=== PATIENT | female | born 1955 | race Asian ===

== ENCOUNTER 2016-07-27 17:20 | Inpatient (IN) | payer OTHER ==
[~2016-07-27] VITALS: Ht 152.4 cm; Wt 76.0 kg
[2016-07-27] VITALS (7 sets, daily range): BP systolic 90–114; BP diastolic 40–63
[2016-07-27] MEDS ORDERED: FERR300L GT (17:39)
[2016-07-27] MEDS ORDERED: ZINC220C8 GT (17:39)
[2016-07-27] MEDS ORDERED: METO25TA6 GT (17:39)
[2016-07-27] MEDS ORDERED: SODI1TAB3 GT (17:39)
[2016-07-27] MEDS ORDERED: DEXT15DR6 EACHEYE (17:39)
[2016-07-27] MEDS ORDERED: LABE100T15 GT (17:39)
[2016-07-27] MEDS ORDERED: MULT-24 GT (17:39)
[2016-07-27] MEDS ORDERED: LORA1TAB GT (17:39)
[2016-07-27] MEDS ORDERED: INSU100V7 SQ (17:39)
[2016-07-27] MEDS ORDERED: LACT1CAP61 GT (17:39)
[2016-07-27] MEDS ORDERED: ASCO500S2 GT (17:39)
[2016-07-27] MEDS ORDERED: FAMO20TA8 GT (17:39)
[2016-07-27] MEDS ORDERED: FOLI1TAB16 GT (17:39)
[2016-07-27] MEDS ORDERED: FURO40TA5 GT (17:39)
[2016-07-27] MEDS ORDERED: INSU100V27 SQ (17:39)
[2016-07-27] MEDS ORDERED: IPRA3AMP IH ×2 (17:39)
[2016-07-27] MEDS ORDERED: MORP10SO2 GT (17:39)
--- NOTE | 2016-07-27 17:46 | NUR ---
PATIENT BIB RA FROM [facility], ON ISOLATION FOR VRE, AND PATIENT IS HERE FOR ABNORMAL LABS FOR LOW H&H, RESPIRATORY AT BEDSIDE, WILL BE SEEN BY MD AT BEDSIDE, PATIENT IS NON VERBAL,
--- NOTE | 2016-07-27 17:51 | NUR ---
PT REC'D ON PORTEX TRACH SZ 7. PT PLACED ON [facility] VENT SETTINGS CHARTED. DANCE ARTIST CUFF PRESSURE NOTED. VENT PLUGGED INTO RED OUTLET. ALARMS ARE SET AND AUDIBLE. AMBU BAG BEDSIDE, WILL CONTINUE TO MONITOR Addendum: 07/27/16 at 1752 by TAWNYA MYERS RT Amended: Links added.
[2016-07-27] MEDS ORDERED: PANTOPRAZOLE 40 MG VIAL ONE (18:11)
[2016-07-27] MEDS ORDERED: PANTOPRAZOLE 40 MG VIAL IV ONE (18:30)
[2016-07-27 18:34] LABS: BASOPHILS % (AUTO) 0.2 % (0.0-2.0); EOSINOPHILS # (AUTO) 0.4 /CMM (0.0-0.7); EOSINOPHILS % (AUTO) 4.4 % (0.0-6.0); LYMPHOCYTES # (AUTO) 1.1 /CMM (0.8-4.8); LYMPHOCYTES % (AUTO) 11.6 % (20.0-44.0); MEAN CORPUSCULAR HEMOGLOBIN 30 PG (26.0-33.0); MEAN CORPUSCULAR HGB CONC 36 g/dl (31.0-36.0); MEAN CORPUSCULAR VOLUME 83 fL (82-100); MONOCYTES # (AUTO) 0.2 /CMM (0.1-1.30); MONOCYTES % (AUTO) 2.4 % (2.0-12.0); NEUTROPHILS # (AUTO) 8.1 /CMM (1.8-8.9); NEUTROPHILS % (AUTO) 81.4 % (43.0-81.0); RDW COEFFICIENT OF VARIATION 15.7 (11.5-15.0); RED BLOOD CELL COUNT(AUTO) 2.35 MIL/uL (4.0-5.2); WHITE BLOOD COUNT (AUTO) 9.8 K/uL (4.3-11.0)
[2016-07-27 18:38] LABS: HEMATOCRIT 19 % (33-45)
[2016-07-27 18:39] LABS: PLATELET COUNT (AUTO) 40 /CMM (150-450)
[2016-07-27] MEDS ORDERED: IV SET PRIMARY 1 EA INFUS.SET MC ONE (18:44)
[2016-07-27] MEDS ORDERED: IV NS 0.9% 1,000 ML ONE ×2 (18:44→22:20)
[2016-07-27 18:45] LABS: BILIRUBIN,DIRECT 0.7 mg/dL (0.0-0.2); BILIRUBIN,TOTAL 0.9 mg/dL (0.2-1.0); CALCIUM, SERUM 8.4 mg/dL (8.5-10.1); CREATININE 1.2 mg/dL (0.6-1.3); POTASSIUM 4.1 mmol/L (3.5-5.1); TOTAL PROTEIN, SERUM 5.8 g/dL (6.4-8.2)
[2016-07-27 18:46] LABS: ALBUMIN 1.4 g/dL (3.4-5.0)
[2016-07-27 18:49] LABS: INR 1.02 (0.87-1.13); PROTHROMBIN TIME 10.6 SECS (9.5-12.7)
[2016-07-27] MEDS ORDERED: IV NS 0.9% 500 ML BAG IV ONE ×2 (19:00)
[2016-07-27 19:11] LABS: NEUTROPHILS % (MANUAL) 75 (42-76)
[2016-07-27 19:12] LABS: EOSINOPHILS % (MANUAL) 4 % (0-4); LYMPHOCYTES % (MANUAL) 19 % (16-48); MONOCYTES % (MANUAL) 2 % (0-11.0)
--- NOTE | 2016-07-27 19:43 | NUR ---
CALLED NURSING SUP. FOR FABRIZIO BED
--- NOTE | 2016-07-27 20:30 | NUR ---
REPORT GIVEN TO IAN HAYNES FOR MANDEEP.
--- NOTE | 2016-07-27 20:38 | NUR ---
[facility] PAGED, DR.VU MURRAY SENIOR JAVA WEB APPLICATION DEVELOPER
[2016-07-27] MEDS ORDERED: IV NS 0.9% 1,000 ML IV PRN (21:06)
--- NOTE | 2016-07-27 21:17 | NUR ---
Transported to [facility] room 109 via [facility] protocol, no inciden noted. endorsed to Radha HAYNES for santiago.
[2016-07-27] MEDS ORDERED: MAG HYDROX/AL HYDROX/SIMETH 30 ML UDC GT PRN (21:30)
[2016-07-27] MEDS ORDERED: LORAZEPAM 1 MG TABLET GT PRN (21:30)
[2016-07-27] MEDS ORDERED: MORPHINE SULFATE GT PRN (21:30)
[2016-07-27] MEDS ORDERED: MAGNESIUM HYDROXIDE 30 ML UDC GT PRN (21:30)
[2016-07-27] MEDS ORDERED: ZOLPIDEM TARTRATE 5 MG TABLET GT PRN (21:30)
[2016-07-27] MEDS ORDERED: ONDANSETRON HCL/PF 4 MG/2 ML VIAL IVP PRN (21:30)
[2016-07-27] MEDS ORDERED: HYDROCODONE/APAP 5/325MG 1 EACH TABLET GT PRN (21:30)
[2016-07-27] MEDS ORDERED: MORPHINE SULFATE INJ 2 MG/ML DISP.SYRIN IV PRN (21:30)
[2016-07-27] MEDS ORDERED: Medication Not On Formulary EA (Ipratropium/Albuterol Sulfate (Duoneb 2.5-0.5 Mg/3 Ml So IH PRN (21:30)
[2016-07-27] MEDS ORDERED: ALBUMIN 25% 100 ML IV ONE (22:18)
[2016-07-27] MEDS ORDERED: IV SET PRIMARY PUMP SET 1 EA INFUS.SET MC ONE (22:20)
[2016-07-27] MEDS ORDERED: BLOOD IV SET 1 EA INFUS.SET MC ONE (22:20)
[2016-07-27] MEDS ORDERED: IV NS 0.9% 250 ML IV ONE (22:21)
[2016-07-27] MEDS ORDERED: SECONDARY IV SET 1 EA INFUS.SET MC ONE (22:21)
--- NOTE | 2016-07-27 22:30 | NUR ---
RN ADMITTING NOTES RECEIVED PATIENT FROM ER AT 2115, VIA GURNEY, TRANSPORTED VIA ACLS PROTOCOL. PATIENT OBSERVED TO BE OBTUNDED, NONVERBAL, OPENS EYES SPONTANEOUSLY, UNABLE TO FOLLOW COMMANDS, RESPONDS AND WITHDRAWS WITH TACTILE STIMULI. PATIENT CONNECTED TO TELE, SB AT 56. WITH TRACH - PORTEX 7, ON [facility] VENT SETTINGS OF AC 12, TV 400, FIO2 40%, PEEP 5. AIRWAY SUCTIONED WITH MINIMAL, THICK, WHITE SECRETIONS. DELBERT PICC LINE, FLUSHED AND PATENT, (+) BLOOD RETURN. GT FLUSHED, PATENT, CLAMPED. F/C IN PLACE, INTACT, DRAINING VIA GRAVITY WITH DOMINIQUE COLORED URINE. TEMP NOTED TO BE 91.7, SHELLEY HUGGER IN PLACE. ADMISSION DONE, BODY CHECK DONE, PICTURES TAKEN AND FILED IN CHART. ADMITTED FOR ACUTE ANEMIA, HYPONATREMIA UNDER THE CARE OF DR. MURRAY. DR. MURRAY AT BEDSIDE, UPDATED OF PATIENT'S CONDITION, ORDERS NOTED AND CARRIED OUT. PATIENT'S DTR, DORITA, UPDATED WITH PATIENT'S CURRENT CONDITION AND PLAN OF CARE. PATIENTS' SAFETY AND COMFORT ENSURED. BED IN LOW AND LOCKED POSITION. HOB ELEVATED. WILL CONTINUE TO MONITOR.
--- NOTE | 2016-07-27 22:41 | NUR ---
RN NOTES 2229 DR. MURRAY AT BEDSIDE. AWARE OF 2 UNITS PRBC ORDERED BY ER MD DR. RICHARDS. PER MD TO TRANSFUSE 1 UNIT FOR NOW AND RECHECK H/H AT 0100, TO CALL FOR RESULTS. ALSO INFORMED HIM OF 91.7 TEMP PER RECTUM. WARM BLANKET PROVIDED FOR NOW. WILL CONTINUE TO MONITOR
[2016-07-28] VITALS (17 sets, daily range): BP systolic 88–112; BP diastolic 46–66
[2016-07-28] MEDS ORDERED: IV SET PRIMARY PUMP SET 1 EA INFUS.SET MC ONE ×2 (00:30→10:11)
--- NOTE | 2016-07-28 00:40 | NUR ---
RN NOTES 1unit OF PRBC TRANSFUSED ORDERED, NO REACTION OBSERVED. TOLERATED WELL. VS: 93.4, 94/56, 57, 100%.
[2016-07-28] MEDS: ALBUMIN 25% 25 GM in PREMIX 1 EA IV SCH ×4 (00:42→15:49)
[2016-07-28] MEDS ORDERED: Medication Not On Formulary EA (Ipratropium/Albuterol Sulfate (Duoneb 2.5-0.5 Mg/3 Ml So IH SCH (01:00)
[2016-07-28 01:49] LABS: RETICULOCYTE COUNT 1.7 % (0.6-2.5)
[2016-07-28 01:53] LABS: HEMOGLOBIN 8.1 g/dL (11.5-14.8)
--- NOTE | 2016-07-28 02:15 | NUR ---
RN NOTES INFORMED DR. MURRAY OF THE PATIENT'S REPEAT H/H POST 1unit OF PRBC TRANSFUSED. VALUE OF 8.1/. DR. MURRAY WITH NO ORDER FOR FURTHER PRBC TRANSFUSION. CONT TO MONITOR. VS: 96.6 AXILLARY, REMAINS ON SHELLEY HUGGER; 103/51, 62 SR. ALSO CLARIFIED WITH DR. MURRAY THE PATIENT'S ISOLATION OF ESBL/VRE URINE ENDORSED FROM ER AND THE SNF PATIENT CAME FROM, PATIENT ON F/C. ORDER TO COLLECT URINALYSIS AND C/S, NOTED AND CARRIED OUT. PATIENT'S BS CHECKED AND NOTED TO BE 137. GT FLUSHED, PATENT, CLAMPED AND PATIENT ON NPO. NO SS ORDERED AT THIS TIME, WILL REEVAL WHEN FEEDING RESUMED.
[2016-07-28 02:33] LABS: THYROID STIMULATING HORMONE 20.636 uIU/mL (0.358-3.74)
[2016-07-28 05:05] LABS: APPEARANCE,URINE CLOUDY (CLEAR); BILIRUBIN,URINE 1+ (NEGATIVE); BLOOD, URINE 3+ Ery/uL (NEGATIVE); COLOR,URINE YELLOW (YELLOW); KETONES,URINE NEGATIVE (NEGATIVE); LEUKOCYTE ESTERASE ,URINE 2+ (NEGATIVE); NITRITE, URINE NEGATIVE (NEGATIVE); PH,URINE 5.5 (5.0-8.0); PROTEIN,URINE 2+ mg/dl (NEGATIVE); UGLUCOSE NEGATIVE (NEGATIVE); UROBILINOGEN,URINE 0.2 EU/dL (0.2)
[2016-07-28 05:17] LABS: RBC,URINE 81-100 /HPF (0-2)
[2016-07-28 05:18] LABS: BACTERIA,URINE 2+ /HPF (None Seen); SQUAMOUS EPITHELIAL CELL,UR Few /HPF (None Seen); YEAST,URINE Many /HPF (None Seen)
[2016-07-28] MEDS ORDERED: ALBUMIN 25% 100 ML IV ONE (05:24)
--- NOTE | 2016-07-28 06:39 | NUR ---
RN CLOSING NOTES PATIENT WITH NO ACUTE DISTRESS OBSERVED OVERNIGHT. PATIENT'S AIRWAY SUCTIONED NEEDED, SATURATION KEPT >98% AT ALL TIMES. SR ON TELE WITH HR OF 71. DELBERT PICC LINE INTACT, IVF INFUSING WELL ORDERED. F/C INTACT AND DRAINING WELL VIA GRAVITY. GT INTACT, PATENT, CLAMPED. REMAINS ON SHELLEY HUGGER, RECENT TEMP AT 98.0. ALL DUE MEDS GIVEN ORDERED. AM LABS DRAWN. WOUND TREATMENT RENDERED ORDERED. TRACH CARE DONE. WILL ENDORSE ACCORDINGLY FOR CONTINUITY OF CARE.
[2016-07-28 08:04] LABS: ALBUMIN 1.9 g/dL (3.4-5.0); BILIRUBIN,TOTAL 1.4 mg/dL (0.2-1.0); CALCIUM, SERUM 8.2 mg/dL (8.5-10.1); MAGNESIUM 1.7 mg/dL (1.8-2.4); PHOSPHORUS 5.5 mg/dL (2.5-4.9); POTASSIUM 4.6 mmol/L (3.5-5.1); TOTAL PROTEIN, SERUM 5.9 g/dL (6.4-8.2)
[2016-07-28] MEDS ORDERED: ACETAMINOPHEN 650 MG/20.3 ML UDC GT PRN (08:30)
[2016-07-28] MEDS ORDERED: IPRATROPIUM NEB FS 0.5 MG/2.5 ML AMPUL.NEB NEB PRN (08:30)
[2016-07-28] MEDS ORDERED: ALBUTEROL FS 2.5 MG/3 ML VIAL.NEB NEB PRN (08:30)
[2016-07-28 08:37] LABS: BASOPHILS % (AUTO) 0.4 % (0.0-2.0); EOSINOPHILS # (AUTO) 0.2 /CMM (0.0-0.7); EOSINOPHILS % (AUTO) 2.5 % (0.0-6.0); LYMPHOCYTES # (AUTO) 1.1 /CMM (0.8-4.8); LYMPHOCYTES % (AUTO) 13.5 % (20.0-44.0); MEAN CORPUSCULAR HEMOGLOBIN 29 PG (26.0-33.0); MEAN CORPUSCULAR HGB CONC 35 g/dl (31.0-36.0); MEAN CORPUSCULAR VOLUME 84 fL (82-100); MONOCYTES # (AUTO) 0.5 /CMM (0.1-1.30); MONOCYTES % (AUTO) 6.3 % (2.0-12.0); NEUTROPHILS # (AUTO) 6.1 /CMM (1.8-8.9); NEUTROPHILS % (AUTO) 77.3 % (43.0-81.0); RED BLOOD CELL COUNT(AUTO) 2.39 MIL/uL (4.0-5.2); WHITE BLOOD COUNT (AUTO) 7.9 K/uL (4.3-11.0)
[2016-07-28 08:47] LABS: HEMATOCRIT 20 % (33-45); PLATELET COUNT (AUTO) 23 /CMM (150-450)
[2016-07-28] MEDS ORDERED: SODIUM CHLORIDE 1000 MG TABLET.SOL GT SCH (09:00)
[2016-07-28] MEDS: METOPROLOL TARTRATE 25 MG TABLET GT SCH ×2 (09:00→17:32)
[2016-07-28 09:03] LABS: BAND % (MANUAL) 9 % (0.0-5.0); EOSINOPHILS % (MANUAL) 4 % (0-4); LYMPHOCYTES % (MANUAL) 15 % (16-48); MONOCYTES % (MANUAL) 4 % (0-11.0); NEUTROPHILS % (MANUAL) 68 (42-76)
[2016-07-28] MEDS: FUROSEMIDE 40 MG TABLET GT SCH ×2 (09:39→17:29)
[2016-07-28] MEDS: ASCORBIC ACID SYRUP 500 MG/5 ML UDC GT SCH (09:39)
[2016-07-28] MEDS: ZINC SULFATE 220 MG CAPSULE GT SCH (09:39)
[2016-07-28] MEDS: FOLIC ACID 1 MG TABLET GT SCH (09:39)
[2016-07-28] MEDS: PANTOPRAZOLE 40 MG VIAL IV SCH (09:40)
[2016-07-28] MEDS: MULTIVITAMINS,THERAPEUTIC 1 UDTAB TABLET GT SCH (09:40)
[2016-07-28] MEDS: FERROUS SULFATE UDC 300 MG/5 ML UDC GT SCH ×3 (09:44→17:29)
[2016-07-28] MEDS: ACIDOPHILUS/BULGARICUS 1 EACH TAB.CHEW GT SCH (09:44)
--- NOTE | 2016-07-28 09:45 | NUR ---
TRANSITION LEAD: Na 116, Mg 1.7, H/H 7.0/20, platelets [id number], getting 2gm Na PO qid, NS@75ml/h, SBP last night: 88-106, hold BP meds for now, BS 137, NPO - hold Levemir for now, paged
--- NOTE | 2016-07-28 09:50 | NUR ---
RN FABRIZIO: called back, updated with all above, current pt.condition, labs, ordered: one unit PRBC transfusion
--- NOTE | 2016-07-28 10:10 | NUR ---
RN FABRIZIO: is in room, updated with pt.current status, VS, labs, critical values, IVF, I/O, one unit PRBC order, said: pt.needs antbxs/will notify , waiting furnace worker consult
[2016-07-28] MEDS: Magnesium 1GM/D5W 100ML PREMIX 100 ML IV SCH ×2 (10:15→11:41)
[2016-07-28] MEDS ORDERED: MORPHINE SULFATE INJ 2 MG/ML DISP.SYRIN IV PRN (10:30)
--- NOTE | 2016-07-28 10:40 | NUR ---
RN FABRIZIO: is in room/notified re pt.history, current condition, VS, I/O, IVF, critical labs, meds, see new orders
[2016-07-28] MEDS ORDERED: IV NS 0.9% 250 ML IV ONE (11:00)
[2016-07-28] MEDS ORDERED: IV NS 0.9% 250 ML BAG IV ONE (11:00)
--- NOTE | 2016-07-28 11:15 | NUR ---
RN FABRIZIO: is in room, spoke with pt.daughter, updated again with pt.meds, labs, state morning BS 137/said ok to give Levemir per order, updated with DT recommendation/said continue NPO
[2016-07-28] MEDS: INSULIN DETEMIR 100 UNIT/ML CARTRIDGE SQ SCH (11:57)
[2016-07-28] MEDS: LABETALOL HCL (100MG) 100 MG TABLET GT SCH (12:00)
[2016-07-28] MEDS ORDERED: BLOOD IV SET 1 EA INFUS.SET MC ONE (12:30)
[2016-07-28] MEDS: IV Sodium Chloride 3% 500 ML 500 ML IV PRN (13:14)
[2016-07-28 13:45] LABS: CREATININE, URINE 22.4 MG/DL (30.0-125.0)
[2016-07-28] MEDS: IPRATROPIUM NEB FS 0.5 MG/2.5 ML AMPUL.NEB NEB SCH ×4 (15:36→23:57)
[2016-07-28] MEDS: ALBUTEROL FS 2.5 MG/3 ML VIAL.NEB NEB SCH ×4 (15:36→23:57)
--- NOTE | 2016-07-28 16:00 | NUR ---
RN FABRIZIO: PRBC transfusion is done, pt is tolerated well
--- NOTE | 2016-07-28 17:30 | NUR ---
RN FABRIZIO: is in room, notified re pt.history, current condition, VS, NPO, IVF, critical labs values, BT, meds, FiO2, O2sat., CXR is done, suction amount, ordered ABG
[2016-07-28 18:18] LABS: ABG BASE EXCESS -10.1 mmol/L; ABG OXYGEN SATURATION 97.9 % (92.0-98.5); ABG PCO2 34.3 mmHg (35.0-45.0); ABG PO2 165.7 mmHg (75.0-100.0); AaDO2 80.1 mmHg; COHb 0.3 % (0.5-1.5); MetHb 1.8 % (0.0-1.5); O2Hb 95.8 % (94.0-97.0); PEEP,BG 5 cm H2O; SITE, ABG Right Radial; VT, ABG 400 mL
--- NOTE | 2016-07-28 19:15 | NUR ---
RN INITIAL NOTES RECEIVED PATIENT OBTUNDED, NONVERBAL, RESPONDS TO TOUCH AND DOES NOT FOLLOW COMMANDS. WITH TRACH, ON MECH VENT, TOLERATING CURRENT SETTINGS WELL. AIRWAY SUCTIONED NEEDED. SR ON TELE, HR OF 64. DELBERT PICC LINE INTACT AND PATENT, IVF OF 3%NS RUNNING ORDERED AT 40CC/HR. F/C INTACT AND DRAINING WELL WITH DOMINIQUE COLORED URINE. PATIENT ON NPO, GT FLUSHED AND KEPT PATENT. PATIENT'S NEEDS ANTICIPATED AND MET. SAFETY AND COMFORT ENSURED. BED IN LOW AND LOCKED POSITION. WILL CONTINUE TO MONITOR.
[2016-07-28] MEDS ORDERED: IV Sodium Chloride 3% 500 ML 500 ML IV ONE (20:11)
[2016-07-29] VITALS (7 sets, daily range): BP systolic 89–112; BP diastolic 45–64
[2016-07-29] MEDS: IV Sodium Chloride 3% 500 ML 500 ML IV PRN ×2 (02:56→16:48)
[2016-07-29] MEDS: Z GUARD REMEDY 2 OZ OINT TP PRN (02:57)
[2016-07-29] MEDS: ALBUTEROL FS 2.5 MG/3 ML VIAL.NEB NEB SCH ×6 (04:24→23:32)
[2016-07-29] MEDS: IPRATROPIUM NEB FS 0.5 MG/2.5 ML AMPUL.NEB NEB SCH ×6 (04:25→23:32)
--- NOTE | 2016-07-29 04:54 | NUR ---
RN NOTES AM CARE RENDERED, PATIENT KEPT CLEAN AND DRY. WOUND TREATMENT RENDERED. TRACH CARE DONE. GT FLUSHED AND KEPT PATENT. DELBERT PICC LINE INTACT, IVF INFUSING WELL. F/C INTACT AND DRAINING VIA GRAVITY. REMAINS SR AT 60s. SAFETY AND COMFORT ENSURED. TURNED AND REPOSITIONED.
--- NOTE | 2016-07-29 06:32 | NUR ---
RN CLOSING NOTES PATIENT WITH NO ACUTE CHANGE IN CONDITION OBSERVED OVERNIGHT. VS STABLE. DELBERT PICC LINE PATENT, IVF INFUSING ORDERED. CONTINUOUS ON NPO, GT FLUSHED AND KEPT PATENT. F/C INTACT AND DRAINING VIA GRAVITY. REMAINS SR AT 62. SAFETY AND COMFORT ENSURED. WILL ENDORSE ACCORDINGLY FOR CONTINUITY OF CARE.
[2016-07-29 06:49] LABS: THYROID STIMULATING HORMONE 16.744 uIU/mL (0.358-3.74)
[2016-07-29 06:59] LABS: CALCIUM, SERUM 8.6 mg/dL (8.5-10.1); CREATININE 1.1 mg/dL (0.6-1.3); MAGNESIUM 2.1 mg/dL (1.8-2.4)
[2016-07-29 07:00] LABS: HEMATOCRIT 25 % (33-45); HEMOGLOBIN 8.6 g/dL (11.5-14.8); MEAN CORPUSCULAR HEMOGLOBIN 30 PG (26.0-33.0); MEAN CORPUSCULAR HGB CONC 35 g/dl (31.0-36.0); MEAN CORPUSCULAR VOLUME 85 fL (82-100); RED BLOOD CELL COUNT(AUTO) 2.88 MIL/uL (4.0-5.2)
[2016-07-29 07:01] LABS: BASOPHILS % (AUTO) 0.4 % (0.0-2.0); LYMPHOCYTES % (AUTO) 12.7 % (20.0-44.0); MONOCYTES % (AUTO) 8.6 % (2.0-12.0); NEUTROPHILS % (AUTO) 78.3 % (43.0-81.0); RDW COEFFICIENT OF VARIATION 16.3 (11.5-15.0)
[2016-07-29 07:02] LABS: LYMPHOCYTES # (AUTO) 1.1 /CMM (0.8-4.8); MONOCYTES # (AUTO) 0.8 /CMM (0.1-1.30)
[2016-07-29 07:03] LABS: PLATELET COUNT (AUTO) 22 /CMM (150-450)
[2016-07-29] MEDS ORDERED: DEXTROSE 50%-WATER 50 ML DISP.SYRIN ONE (07:23)
--- NOTE | 2016-07-29 07:30 | NUR ---
RN FABRIZIO: BS 39, platelets [phone], called back, ordered dextrose 50%-50ml x one IV, hold Levemir, is on case
[2016-07-29 07:42] LABS: BILIRUBIN,DIRECT 2.5 mg/dL (0.0-0.2); BILIRUBIN,TOTAL 3.1 mg/dL (0.2-1.0)
--- NOTE | 2016-07-29 07:50 | NUR ---
RN FABRIZIO: pt.is obtunded, reactive by touch, short eyes contact, but unable to follow commands/tracking, HR 60-64, SBP 98-112 over night, still NPO, 3%ns @40ML/H, PICC pink lumen/port is occluded
--- NOTE | 2016-07-29 08:20 | NUR ---
RN FABRIZIO: BS 87 is now after dextrose 50-50
[2016-07-29] MEDS: INSULIN DETEMIR 100 UNIT/ML CARTRIDGE SQ SCH (09:00)
[2016-07-29] MEDS: LABETALOL HCL (100MG) 100 MG TABLET GT SCH (09:00)
[2016-07-29] MEDS: METOPROLOL TARTRATE 25 MG TABLET GT SCH ×2 (09:00→17:00)
[2016-07-29 09:15] LABS: BAND % (MANUAL) 5 % (0.0-5.0); EOSINOPHILS % (MANUAL) 3 % (0-4); LYMPHOCYTES % (MANUAL) 10 % (16-48); MONOCYTES % (MANUAL) 9 % (0-11.0); MYELOCYTES % 4 % (0-0); NEUTROPHILS % (MANUAL) 69 (42-76)
[2016-07-29] MEDS: FOLIC ACID 1 MG TABLET GT SCH (09:54)
[2016-07-29] MEDS: FUROSEMIDE 40 MG TABLET GT SCH ×2 (09:54→17:05)
[2016-07-29] MEDS: ZINC SULFATE 220 MG CAPSULE GT SCH (09:54)
[2016-07-29] MEDS: ACIDOPHILUS/BULGARICUS 1 EACH TAB.CHEW GT SCH (09:54)
[2016-07-29] MEDS: PANTOPRAZOLE 40 MG VIAL IV SCH (09:55)
[2016-07-29] MEDS: ASCORBIC ACID SYRUP 500 MG/5 ML UDC GT SCH (09:55)
[2016-07-29] MEDS: FERROUS SULFATE UDC 300 MG/5 ML UDC GT SCH ×3 (09:55→17:06)
[2016-07-29] MEDS: MULTIVITAMINS,THERAPEUTIC 1 UDTAB TABLET GT SCH (09:55)
--- NOTE | 2016-07-29 10:30 | NUR ---
[facility] SOLUTION ARCHITECT: detailed updated with pt.current condition, VS (SBP 98-112, HR 60-64 over night), NPO, IVF, I/O, critical labs/ BS, platelets, e-lytes, H/H, ABG, meds, microbiol.labs, multiple bleeding wounds, said: hold BP meds for now, continue monitoring, continue same IVF, NPO, PICC, Dextrose 50-50 prn, spoke with pt.daughter, see new orders, Dr.Lee la pt: continue same 3%NS IVF rate
[2016-07-29] MEDS ORDERED: DEXTROSE 50%-WATER 50 ML DISP.SYRIN IVP ONE (11:00)
--- NOTE | 2016-07-29 15:00 | NUR ---
RN FABRIZIO: updated with pt.current status, VS, O2sat., IVF, labs, I/O, NPO, suction amount, see new orders
--- NOTE | 2016-07-29 17:00 | NUR ---
RN FABRIZIO: notified [facility] re ABG order per
[2016-07-29] MEDS ORDERED: INSULIN REGULAR, HUMAN 100 UNIT/ML 3 ML VIAL SQ PRN (17:30)
--- NOTE | 2016-07-29 17:45 | NUR ---
RN FABRIZIO: BS 23, Dextrose 50%-50ml IV x1 given per Dr.Andonian levy
[2016-07-29] MEDS: DEXTROSE 50%-WATER 50 ML DISP.SYRIN IV PRN (18:00)
[2016-07-29] MEDS: BLOOD SUGAR DIAGNOSTIC 1 EACH STRIP IN SCH (18:10)
--- NOTE | 2016-07-29 18:45 | NUR ---
RN FABRIZIO: BS 98 now
--- NOTE | 2016-07-29 19:30 | NUR ---
RN INITIAL NOTES RECEIVED PATIENT OBTUNDED, NONVERBAL, RESPONDS TO TOUCH AND TACTILE STIMULI AND DOES NOT FOLLOW COMMANDS. WITH TRACH, ON MECH VENT, TOLERATING CURRENT SETTINGS WELL. AIRWAY SUCTIONED NEEDED. SR ON TELE, HR OF 64. DELBERT PICC LINE INTACT AND PATENT, IVF OF 3% NS RUNNING ORDERED AT 40CC/HR. F/C INTACT AND DRAINING WELL WITH DOMINIQUE COLORED URINE. PATIENT ON NPO, GT FLUSHED AND KEPT PATENT. PATIENT'S NEEDS ANTICIPATED AND MET. SAFETY AND COMFORT ENSURED. BED IN LOW AND LOCKED POSITION. WILL CONTINUE TO MONITOR.
[2016-07-30] VITALS (21 sets, daily range): BP systolic 69–153; BP diastolic 26–99
[2016-07-30] MEDS: ALBUTEROL FS 2.5 MG/3 ML VIAL.NEB NEB SCH ×6 (04:29→23:09)
[2016-07-30] MEDS: IPRATROPIUM NEB FS 0.5 MG/2.5 ML AMPUL.NEB NEB SCH ×6 (04:29→23:09)
[2016-07-30] MEDS: BLOOD SUGAR DIAGNOSTIC 1 EACH STRIP IN SCH ×5 (05:19→20:10)
--- NOTE | 2016-07-30 06:00 | NUR ---
RN NOTES HR NOTED TO DROP TO 50, SUSTAINED. BP 97/50, TEMP 91.0 RECTALLY. PATIENT PLACED ON HEATING BLANKET. WILL MONITOR CLOSELY
[2016-07-30 06:42] LABS: BASOPHILS % (AUTO) 0.1 % (0.0-2.0); EOSINOPHILS # (AUTO) 0.1 /CMM (0.0-0.7); EOSINOPHILS % (AUTO) 0.9 % (0.0-6.0); HEMATOCRIT 23 % (33-45); HEMOGLOBIN 7.9 g/dL (11.5-14.8); LYMPHOCYTES % (AUTO) 8.6 % (20.0-44.0); MEAN CORPUSCULAR HEMOGLOBIN 30 PG (26.0-33.0); MEAN CORPUSCULAR HGB CONC 34 g/dl (31.0-36.0); MEAN CORPUSCULAR VOLUME 87 fL (82-100); MONOCYTES # (AUTO) 0.5 /CMM (0.1-1.30); MONOCYTES % (AUTO) 4.1 % (2.0-12.0); NEUTROPHILS # (AUTO) 9.6 /CMM (1.8-8.9); NEUTROPHILS % (AUTO) 86.3 % (43.0-81.0); RDW COEFFICIENT OF VARIATION 16.3 (11.5-15.0); RED BLOOD CELL COUNT(AUTO) 2.64 MIL/uL (4.0-5.2); WHITE BLOOD COUNT (AUTO) 11.2 K/uL (4.3-11.0)
[2016-07-30 06:58] LABS: PLATELET COUNT (AUTO) 18 /CMM (150-450)
--- NOTE | 2016-07-30 07:00 | NUR ---
RN CLOSING NOTES PATIENT RESTING IN BED, CONTINUES ON BARE HUGGER, RECTAL TEMP 93.4 @ THIS TIME. PATIENT ENDORSED TO THE AM SHIFT NURSE FOR MANDEEP.
[2016-07-30 07:16] LABS: CALCIUM, SERUM 8.5 mg/dL (8.5-10.1); CREATININE 1.2 mg/dL (0.6-1.3); PHOSPHORUS 5.9 mg/dL (2.5-4.9); POTASSIUM 3.4 mmol/L (3.5-5.1)
--- NOTE | 2016-07-30 08:00 | NUR ---
RN INITIAL NOTES RECEIVED PATIENT NONVERBAL, RESPONDS TO TOUCH AND TACTILE STIMULI AND DOES NOT FOLLOW COMMANDS. WITH TRACH, ON MECH VENT, TOLERATING CURRENT SETTINGS WELL. AIRWAY SUCTIONED NEEDED. SB ON TELE, HR OF 54. DELBERT PICC LINE INTACT AND PATENT, IVF OF 3% NS RUNNING ORDERED AT 40CC/HR. F/C INTACT AND DRAINING WELL WITH DOMINIQUE COLORED URINE. PATIENT ON NPO, GT FLUSHED AND KEPT PATENT. PATIENT'S NEEDS ANTICIPATED AND MET. NOTED WITH MANY SKIN ISSUES. SAFETY AND COMFORT ENSURED. BED IN LOW AND LOCKED POSITION. WILL CONTINUE TO MONITOR. Addendum: 07/30/16 at 1908 by DALLAS JONES RN RECTAL TEMP NOTED TO BE 92.3. BEAR HUGGER IN PLACE WARMING MEASURES OBSERVED. ONGOING MONITORING.
[2016-07-30] MEDS: METOPROLOL TARTRATE 25 MG TABLET GT SCH ×2 (09:00→17:00)
[2016-07-30] MEDS: LABETALOL HCL (100MG) 100 MG TABLET GT SCH (09:00)
[2016-07-30] MEDS: INSULIN DETEMIR 100 UNIT/ML CARTRIDGE SQ SCH (09:00)
[2016-07-30] MEDS: ZINC SULFATE 220 MG CAPSULE GT SCH (09:06)
[2016-07-30] MEDS: ASCORBIC ACID SYRUP 500 MG/5 ML UDC GT SCH (09:06)
[2016-07-30] MEDS: FUROSEMIDE 40 MG TABLET GT SCH ×2 (09:06→17:00)
[2016-07-30] MEDS: FERROUS SULFATE UDC 300 MG/5 ML UDC GT SCH ×3 (09:06→17:07)
[2016-07-30] MEDS: PANTOPRAZOLE 40 MG VIAL IV SCH (09:06)
[2016-07-30] MEDS: FOLIC ACID 1 MG TABLET GT SCH (09:06)
[2016-07-30] MEDS: ACIDOPHILUS/BULGARICUS 1 EACH TAB.CHEW GT SCH (09:06)
[2016-07-30] MEDS: IV Sodium Chloride 3% 500 ML 500 ML IV PRN (09:07)
[2016-07-30] MEDS: MULTIVITAMINS,THERAPEUTIC 1 UDTAB TABLET GT SCH (09:08)
[2016-07-30 10:31] LABS: EOSINOPHILS % (MANUAL) 9 % (0-4); LYMPHOCYTES % (MANUAL) 8 % (16-48); MONOCYTES % (MANUAL) 2 % (0-11.0); NEUTROPHILS % (MANUAL) 81 (42-76)
--- NOTE | 2016-07-30 11:42 | NUR ---
WOUND CARE CONSULT: PT PRESENTS WITH MULTIPLE SKIN ISSUES AND WOUNDS PRESENT ON ADMISSION INCLUDING STAGE II ULCERS TO BACK AND SACRUM, UNSTAGEABLE ULCER TO RT BUTTOCK AND SKIN TEARS, EXCORIATED AREAS, BRUISES WITH 4+ PITTING EDEMA GENERALIZED. PT SEEN BY SURGICAL TEAM. ORDERS RECEIVED FROM DR LOWE. ALL SKIN AND WOUND RECOMMENDATIONS DISCUSSED WITH NURSING STAFF. MD IN AGREEMENT WITH PLAN OF CARE. WILL SEE PRN. Addendum: 07/30/16 at 1144 by THOMAS HAYNES WNDNU Amended: Links added.
[2016-07-30] MEDS ORDERED: HYDROGEL DRESSING 90 GM TUBE TP PRN (12:00)
[2016-07-30] MEDS ORDERED: RENAL NOVASOURCE 1,000 ML BOTTLE GT PRN (12:30)
[2016-07-30] MEDS: HYDROGEL DRESSING 90 GM TUBE TP SCH (12:45)
[2016-07-30] MEDS: POTASSIUM CL. PREMIX PERIPHER. 50 ML IV SCH ×2 (12:45→12:51)
[2016-07-30] MEDS: CADEXOMER IODINE 40 GM TUBE TP SCH (12:45)
[2016-07-30] MEDS: NEOMY SULF/BACITRAC ZN/POLY 15 GM TUBE TP SCH (12:45)
[2016-07-30 13:11] LABS: *SPE A/G RATIO 0.6 (0.7-1.7); *SPE ALBUMIN 1.8 g/dL (2.9-4.4); *SPE ALPHA-1-GLOBULIN 0.4 g/dL (0.0-0.4); *SPE ALPHA-2-GLOBULIN 0.7 g/dL (0.4-1.0); *SPE BETA GLOBULIN 0.7 g/dL (0.7-1.3); *SPE GLOBULIN, TOTAL 3.1 g/dL (2.2-3.9); *SPE M-SPIKE Not Observed g/dL (Not Observed); *SPE PROTEIN TOTAL 4.9 g/dL (6.0-8.5); *SPEGAMMA GLOBULIN 1.3 g/dL (0.4-1.8); HAPTOGLOBIN 170 mg/dL (34-200)
[2016-07-30 14:15] LABS: IMMUNOGLOBULIN A, SERUM 232 mg/dL (87-352); IMMUNOGLOBULIN G, SERUM 1124 mg/dL (700-1600); IMMUNOGLOBULIN M, SERUM 28 mg/dL (26-217)
[2016-07-30] MEDS: CEFTRIAXONE 1 G in IV D5W 50 ML IV SCH (14:30)
[2016-07-30] MEDS ORDERED: IV NS 0.9% 500 ML IV ONE ×3 (15:44→18:00)
[2016-07-30] MEDS ORDERED: IV SET PRIMARY PUMP SET 1 EA INFUS.SET MC ONE ×2 (15:45→18:00)
--- NOTE | 2016-07-30 16:30 | NUR ---
FABRIZIO RN NOTE; CALLL MADE TO LAB REGARDING 1 UNIT OF PLATELET WHICH IS NOT READY AT THIS POINT. ORDERS REPLACED. AWAITING FOR CALL FROM LAB TO TRANSFUSE 1 U PLATELET. ONGOING MONITORING
--- NOTE | 2016-07-30 17:00 | NUR ---
FABRIZIO RN NOTE: PATIENT NOTED WITH BP IN LOW 80'S, DR. HARRIS MADE AWARE, PER ORDER 500ML BOLUS GIVEN SBP MAINTAINS IN LOW 80'S 70'S. RECIEVED ORDER FOR ANOTHER 500ML BOLUS. BOLUS INITIATED. PATIENT PLACED IN SUPINE POSITION, FEEDING STOPPED. ONGOING MONITORING
[2016-07-30] MEDS: DEXTROSE 50%-WATER 50 ML DISP.SYRIN IV PRN (17:33)
--- NOTE | 2016-07-30 17:33 | NUR ---
DIRECTOR PRINT PATIENT'S BLOOD GLUCOSE NOTED TO BE 48. D50 GIVEN. WILL MONITOR.
[2016-07-30] MEDS ORDERED: DEXTROSE 50%-WATER 50 ML DISP.SYRIN IV PRN (18:00)
--- NOTE | 2016-07-30 18:15 | NUR ---
FABRIZIO RN NOTE: CALL MADE TO DR. HARRIS BP IN 70'S RECEIVED ORDER FOR TRANSFER TO ICU AND BOLUS 1L WITH A TOTAL OF 2L BOLUS, LOWE CULTURES AND LEVOPHED. TRAVEL COTA AT BEDSIDE. REPORT GIVEN. AWAITING TRANSFER. ONGOING MONITORING
[2016-07-30] MEDS: NOREPINEPHRINE 16 MG in IV D5W 500 ML IV PRN (18:20)
[2016-07-30] MEDS ORDERED: IV NS 0.9% 1,000 ML ONE (18:22)
[2016-07-30] MEDS ORDERED: IV NS 0.9% 1,000 ML BAG IV ONE (18:30)
[2016-07-30] MEDS ORDERED: IV NS 0.9% 1,000 ML BAG IV PRN (18:30)
[2016-07-30 19:07] LABS: BASOPHILS % (AUTO) 0.1 % (0.0-2.0); EOSINOPHILS # (AUTO) 0.1 /CMM (0.0-0.7); EOSINOPHILS % (AUTO) 1.1 % (0.0-6.0); HEMATOCRIT 21 % (33-45); HEMOGLOBIN 7.3 g/dL (11.5-14.8); LYMPHOCYTES # (AUTO) 1.1 /CMM (0.8-4.8); LYMPHOCYTES % (AUTO) 8.3 % (20.0-44.0); MEAN CORPUSCULAR HEMOGLOBIN 30 PG (26.0-33.0); MEAN CORPUSCULAR HGB CONC 34 g/dl (31.0-36.0); MEAN CORPUSCULAR VOLUME 86 fL (82-100); MONOCYTES # (AUTO) 0.9 /CMM (0.1-1.30); MONOCYTES % (AUTO) 6.5 % (2.0-12.0); RDW COEFFICIENT OF VARIATION 16.7 (11.5-15.0); RED BLOOD CELL COUNT(AUTO) 2.46 MIL/uL (4.0-5.2); WHITE BLOOD COUNT (AUTO) 13.1 K/uL (4.3-11.0)
--- NOTE | 2016-07-30 19:22 | NUR ---
SYSTEM ADMINISTRATION ADVISOR NOTE: PATIENT TRANSFERED TO ROOM 105 (ICU), REPORT GIVEN TO RN DENITA FOR CONTINUITY OF CARE.
--- NOTE | 2016-07-30 19:30 | NUR ---
RN INITIAL NOTES RECEIVED THE PATIENT AWAKE ON BED, OBTUNDED. ON VENT AC 12, TV 400, 40% FIO2, PEEP 5, PORTEX 7, SATURATING WELL. CURRENTLY SR ON THE MONITOR, HR 70'S. SBP IS < 70, PATIENT HAS BEEN STARTED ON LEVO DRIP, GIVEN 2L NS BOLUS, AND ON ICU STATUS. PEG IS CURRENTLY CLAMPED, WILL START GTUBE FEEDING OF NOVASOURCE @ 20MLS/HR. MYRICK CATH INTACT. RIGHT UPPER ARM PICC IS FLUSHED AND PATENT, NO S/S OF INFILTRATION/INFECTION, DRESSING CDI. BED LOW AND LOCKED, SIDERAILS UP. WILL MONITOR CLOSELY
[2016-07-30 19:40] LABS: CALCIUM, SERUM 8.1 mg/dL (8.5-10.1); CREATININE 1.2 mg/dL (0.6-1.3); POTASSIUM 3.6 mmol/L (3.5-5.1)
[2016-07-30] MEDS ORDERED: PLATELET IV SET 1 EA INFUS.SET MC ONE (19:56)
[2016-07-30 20:18] LABS: PLATELET COUNT (AUTO) 18 /CMM (150-450)
[2016-07-30 21:05] LABS: BAND % (MANUAL) 21 % (0.0-5.0); BASOPHILS % (MANUAL) 1 % (0.0-2.0); EOSINOPHILS % (MANUAL) 2 % (0-4); LYMPHOCYTES % (MANUAL) 13 % (16-48); MONOCYTES % (MANUAL) 8 % (0-11.0); NEUTROPHILS % (MANUAL) 55 (42-76)
--- NOTE | 2016-07-30 23:35 | NUR ---
RN NOTES NOTIFIED ON-CALL DR. MURRAY IN REGARDS TO THE PATIENT'S CURRENT HEMATURIA AND PLATELET OF 18. NO NEW ORDERS OF THE MOMENT.
[2016-07-31] VITALS (93 sets, daily range): BP systolic 65–161; BP diastolic 39–106
[2016-07-31] MEDS: BLOOD SUGAR DIAGNOSTIC 1 EACH STRIP IN SCH ×6 (00:56→20:36)
[2016-07-31] MEDS: IPRATROPIUM NEB FS 0.5 MG/2.5 ML AMPUL.NEB NEB SCH ×6 (03:31→23:08)
[2016-07-31] MEDS: ALBUTEROL FS 2.5 MG/3 ML VIAL.NEB NEB SCH ×6 (03:32→23:08)
--- NOTE | 2016-07-31 06:30 | NUR ---
RN CLOSING NOTES PT REMAINS STABLE OF THE MOMENT. SBP > 90, LEVO DRIP TURNED OFF. ALL OTHER DUE MEDS GIVEN, AM CARE PROVIDED. WILL ENDORSE CONTINUITY OF CARE TO AM RN
[2016-07-31 06:48] LABS: BASOPHILS % (AUTO) 0.1 % (0.0-2.0); EOSINOPHILS % (AUTO) 0.2 % (0.0-6.0); HEMATOCRIT 21 % (33-45); HEMOGLOBIN 7.3 g/dL (11.5-14.8); LYMPHOCYTES # (AUTO) 1.4 /CMM (0.8-4.8); MEAN CORPUSCULAR HEMOGLOBIN 30 PG (26.0-33.0); MEAN CORPUSCULAR HGB CONC 35 g/dl (31.0-36.0); MEAN CORPUSCULAR VOLUME 86 fL (82-100); MONOCYTES # (AUTO) 0.8 /CMM (0.1-1.30); NEUTROPHILS # (AUTO) 12.9 /CMM (1.8-8.9); NEUTROPHILS % (AUTO) 85.7 % (43.0-81.0); PLATELET COUNT (AUTO) 64 /CMM (150-450); RED BLOOD CELL COUNT(AUTO) 2.45 MIL/uL (4.0-5.2)
[2016-07-31 07:22] LABS: CALCIUM, SERUM 8.6 mg/dL (8.5-10.1); CREATININE 1.2 mg/dL (0.6-1.3); POTASSIUM 3.8 mmol/L (3.5-5.1)
--- NOTE | 2016-07-31 08:00 | NUR ---
SAP BUSINESS INTELLIGENCE CONSULTANT INITIAL NOTES,AM RECEIVED PATIENT NONVERBAL, RESPONDS TO TOUCH AND TACTILE STIMULI AND DOES NOT FOLLOW COMMANDS. WITH TRACH, ON VENT SETTINGS ORDERED BY MD, NO ACUTE DISTRESS NOTED AT THIS TIME. PT SINUS ON TELE. DELBERT PICC LINE INTACT AND PATENT. F/C INTACT AND DRAINING WELL WITH YELLOW COLORED URINE. PT ON GTUBE FEEDING, TOLERATING WELL, NO RESIDUAL NOTED. NOTED WITH MANY SKIN ISSUES, WILL TREAT PER MD ORDERS. SAFETY AND COMFORT ENSURED. BED IN LOW AND LOCKED POSITION, SIDE RAILS UP, CALL LIGHT WITHIN REACH
[2016-07-31] MEDS: FERROUS SULFATE UDC 300 MG/5 ML UDC GT SCH ×3 (08:41→16:24)
[2016-07-31] MEDS: ZINC SULFATE 220 MG CAPSULE GT SCH (08:41)
[2016-07-31] MEDS: FUROSEMIDE 40 MG TABLET GT SCH ×2 (08:42→16:24)
[2016-07-31] MEDS: ASCORBIC ACID SYRUP 500 MG/5 ML UDC GT SCH (08:42)
[2016-07-31] MEDS: FAMOTIDINE/PF INJ 20 MG/2 ML VIAL IV SCH ×2 (08:42→20:38)
[2016-07-31] MEDS: ACIDOPHILUS/BULGARICUS 1 EACH TAB.CHEW GT SCH (08:42)
[2016-07-31] MEDS: FOLIC ACID 1 MG TABLET GT SCH (08:42)
[2016-07-31] MEDS: MULTIVITAMINS,THERAPEUTIC 1 UDTAB TABLET GT SCH (08:42)
[2016-07-31] MEDS: HYDROGEL DRESSING 90 GM TUBE TP SCH (08:46)
[2016-07-31] MEDS: CADEXOMER IODINE 40 GM TUBE TP SCH (08:47)
[2016-07-31] MEDS: NEOMY SULF/BACITRAC ZN/POLY 15 GM TUBE TP SCH (08:47)
[2016-07-31] MEDS: LABETALOL HCL (100MG) 100 MG TABLET GT SCH (09:00)
[2016-07-31] MEDS: METOPROLOL TARTRATE 25 MG TABLET GT SCH ×2 (09:00→16:24)
[2016-07-31 09:15] LABS: BAND % (MANUAL) 5 % (0.0-5.0); BASOPHILS % (MANUAL) 0 % (0.0-2.0); EOSINOPHILS % (MANUAL) 0 % (0-4); LYMPHOCYTES % (MANUAL) 3 % (16-48); MONOCYTES % (MANUAL) 1 % (0-11.0); NEUTROPHILS % (MANUAL) 91 (42-76)
[2016-07-31 10:10] LABS: ALBUMIN 2.1 g/dL (3.4-5.0); BILIRUBIN,DIRECT 1.6 mg/dL (0.0-0.2); BILIRUBIN,TOTAL 2.1 mg/dL (0.2-1.0); TOTAL PROTEIN, SERUM 5.8 g/dL (6.4-8.2)
[2016-07-31] MEDS ORDERED: FEE PK DOSING 1 MIN EA MC ONE (11:09)
--- NOTE | 2016-07-31 11:20 | NUR ---
ICU/RN: RECEIVED CALL FROM RADIOLOGY TO PULL BACK PICC LINE 7 CM. PRIMARY MD NOTIFIED, PICC PULLED BACK USING STERILE TECHNIQUE, CHEST XRAY ORDERED TO VERIFY.
[2016-07-31] MEDS ORDERED: VANCOMYCIN 1 GM in IV D5W 250 ML IV ONE (12:00)
[2016-07-31] MEDS: CEFTRIAXONE 1 G in IV D5W 50 ML IV SCH (14:32)
[2016-07-31] MEDS ORDERED: BLOOD IV SET 1 EA INFUS.SET MC ONE (15:39)
[2016-07-31] MEDS ORDERED: IV NS 0.9% 250 ML IV ONE ×2 (15:39→23:02)
--- NOTE | 2016-07-31 16:00 | NUR ---
ICU/RN: BLOOD TRANSFUSION INITIATED, TOLERATING WELL, NO S/S OF ADVERSE REACTIONS. WILL CONTINUE TO MONITOR VITALS CLOSELY.
--- NOTE | 2016-07-31 17:00 | NUR ---
ICU/RN: AT BEDSIDE, PT ASSESSED. WILL GET MEDICAL RECORDS OF BONE MARROW BIOPSY SHE HAD DONE, WILL FOLLOW UP WITH MD.
[2016-07-31] MEDS: NOREPINEPHRINE 16 MG in IV D5W 500 ML IV PRN (17:25)
[2016-07-31 17:34] LABS: ABG BASE EXCESS -12.3 mmol/L; ABG OXYGEN SATURATION 95.7 % (92.0-98.5); ABG PH 7.211 (7.350-7.450); ABG PO2 99.4 mmHg (75.0-100.0); AaDO2 143.3 mmHg; COHb 0.7 % (0.5-1.5); MetHb 1.8 % (0.0-1.5); O2Hb 93.3 % (94.0-97.0); PEEP,BG 0 cm H2O; SITE, ABG Right Radial; VT, ABG 400 mL
[2016-07-31] MEDS: INSULIN REGULAR, HUMAN 100 UNIT/ML 3 ML VIAL SQ PRN ×2 (17:40→20:40)
[2016-07-31] MEDS: LINEZOLID RTU BAG 600 MG in PREMIX 1 EA IV SCH (17:47)
--- NOTE | 2016-07-31 18:17 | NUR ---
ICU/RN: PER DIETARY MD ORDERS RECEIVED TO ADJUST RATE OF TUBE FEEING TO 30 ML/HR AND TO ADD DAILY PROSTAT. WILL FOLLOW THROUGH.
[2016-07-31] MEDS: COLISTIMETHATE SODIUM 75 MG in IV NS 0.9% 50 ML IV SCH (18:42)
--- NOTE | 2016-07-31 19:27 | NUR ---
ICU/RN ENDING NOTES,AM REPORT ENDORSED TO NIGHT NURSE. PT ON VENT SETTINGS ORDERED BY MD, NO ACUTE DISTRESS NOTED. VENT CHANGES DONE, PER MD. WILL REPEAT ABG IN AM. BLOOD TRANSFUSION COMPLETE, NO ADVERSE REACTIONS NOTED. PT TOLERATED WELL. PT CONTINUES ON LOW DOSE LEVO FOR BP SUPPORT. SAFETY MEASURES TAKEN, BED IN LOW POSITION, SIDE RAILS UP, CALL LIGHT WITHIN REACH.
[2016-08-01] VITALS (86 sets, daily range): BP systolic 68–145; BP diastolic 13–82
[2016-08-01] MEDS: BLOOD SUGAR DIAGNOSTIC 1 EACH STRIP IN SCH ×6 (00:04→23:31)
[2016-08-01] MEDS: INSULIN REGULAR, HUMAN 100 UNIT/ML 3 ML VIAL SQ PRN ×2 (00:04→04:19)
[2016-08-01] MEDS: RENAL NOVASOURCE 1,000 ML BOTTLE GT PRN (00:05)
--- NOTE | 2016-08-01 03:16 | NUR ---
RN:ICU: PT TITRATED OFF LEVO, PT BP REMAINS LABILE 80'S-90'S. PER PREVIOUS SHIFT BONE MARROW BX WILL POSSIBLY BE DONE, AFTER MD REVIEWS BONE MARROW BX RESULTS FROM PRIOR PROCEDURE. WILL ENDORSE TO NEXT SHIFT. NO APPARENT BLEEDING NOTED. PT TOLERATED BLOOD TX. 24 HOUR URINE COLLECTION STARTED AT 0000. WILL HAVE TO CLARIFY MISC LAB ORDER BY DR YOO IN AM, LAB IS UNAWARE OF WHAT MD MEANS BY IFA. WILL CONTINUE TO MONITOR CLOSELY.
[2016-08-01] MEDS: ALBUTEROL FS 2.5 MG/3 ML VIAL.NEB NEB SCH ×6 (03:31→23:26)
[2016-08-01] MEDS: IPRATROPIUM NEB FS 0.5 MG/2.5 ML AMPUL.NEB NEB SCH ×6 (03:31→23:26)
[2016-08-01] MEDS: LINEZOLID RTU BAG 600 MG in PREMIX 1 EA IV SCH ×2 (04:02→17:14)
--- NOTE | 2016-08-01 04:29 | NUR ---
RN:ICU: PT TEMP 95.0. WARMING BLANKET APPLIED. PT HAS HX OF HYPOTHERMIA. WILL CONTINUE TO MONITOR.
[2016-08-01] MEDS ORDERED: VANCOMYCIN 0.75 GM in IV D5W 250 ML IV SCH (06:00)
[2016-08-01] MEDS: COLISTIMETHATE SODIUM 75 MG in IV NS 0.9% 50 ML IV SCH ×2 (06:03→18:17)
[2016-08-01 06:45] LABS: BASOPHILS % (AUTO) 0.3 % (0.0-2.0); EOSINOPHILS # (AUTO) 0.1 /CMM (0.0-0.7); EOSINOPHILS % (AUTO) 0.9 % (0.0-6.0); HEMATOCRIT 23 % (33-45); HEMOGLOBIN 8.1 g/dL (11.5-14.8); LYMPHOCYTES # (AUTO) 1.4 /CMM (0.8-4.8); LYMPHOCYTES % (AUTO) 10.8 % (20.0-44.0); MEAN CORPUSCULAR HEMOGLOBIN 30 PG (26.0-33.0); MEAN CORPUSCULAR HGB CONC 35 g/dl (31.0-36.0); MEAN CORPUSCULAR VOLUME 86 fL (82-100); MONOCYTES # (AUTO) 0.8 /CMM (0.1-1.30); MONOCYTES % (AUTO) 6.2 % (2.0-12.0); NEUTROPHILS # (AUTO) 10.3 /CMM (1.8-8.9); NEUTROPHILS % (AUTO) 81.8 % (43.0-81.0); RDW COEFFICIENT OF VARIATION 17.4 (11.5-15.0); RED BLOOD CELL COUNT(AUTO) 2.72 MIL/uL (4.0-5.2); WHITE BLOOD COUNT (AUTO) 12.6 K/uL (4.3-11.0)
[2016-08-01 06:53] LABS: INR 1.33 (0.87-1.13); PROTHROMBIN TIME 14.5 SECS (9.5-12.7)
[2016-08-01 07:02] LABS: ALBUMIN 1.9 g/dL (3.4-5.0); BILIRUBIN,DIRECT 1.5 mg/dL (0.0-0.2); BILIRUBIN,TOTAL 2.1 mg/dL (0.2-1.0); CALCIUM, SERUM 9.1 mg/dL (8.5-10.1); CREATININE 1.3 mg/dL (0.6-1.3); MAGNESIUM 1.8 mg/dL (1.8-2.4); POTASSIUM 3.6 mmol/L (3.5-5.1); TOTAL PROTEIN, SERUM 5.7 g/dL (6.4-8.2)
[2016-08-01 07:55] LABS: PLATELET COUNT (AUTO) 42 /CMM (150-450)
[2016-08-01 07:58] LABS: EOSINOPHILS % (MANUAL) 2 % (0-4); LYMPHOCYTES % (MANUAL) 11 % (16-48); MONOCYTES % (MANUAL) 5 % (0-11.0); NEUTROPHILS % (MANUAL) 82 (42-76)
[2016-08-01] MEDS ORDERED: POTASSIUM CHLORIDE 20 MEQ TAB.PRT.SR PO ONE (08:00)
[2016-08-01] MEDS: ZINC SULFATE 220 MG CAPSULE GT SCH (08:16)
[2016-08-01] MEDS: ACIDOPHILUS/BULGARICUS 1 EACH TAB.CHEW GT SCH (08:16)
[2016-08-01] MEDS: MULTIVITAMINS,THERAPEUTIC 1 UDTAB TABLET GT SCH (08:16)
[2016-08-01] MEDS: FAMOTIDINE/PF INJ 20 MG/2 ML VIAL IV SCH ×2 (08:16→20:27)
[2016-08-01] MEDS: ASCORBIC ACID SYRUP 500 MG/5 ML UDC GT SCH (08:17)
[2016-08-01] MEDS: LABETALOL HCL (100MG) 100 MG TABLET GT SCH (08:17)
[2016-08-01] MEDS: POLYVINYL ALCOHOL 15 ML BOTTLE EACHEYE PRN (08:17)
[2016-08-01] MEDS: FERROUS SULFATE UDC 300 MG/5 ML UDC GT SCH ×3 (08:17→17:14)
[2016-08-01] MEDS: CADEXOMER IODINE 40 GM TUBE TP SCH (08:17)
[2016-08-01] MEDS: HYDROGEL DRESSING 90 GM TUBE TP SCH (08:17)
[2016-08-01] MEDS: FUROSEMIDE 40 MG TABLET GT SCH ×2 (08:18→17:14)
[2016-08-01] MEDS: METOPROLOL TARTRATE 25 MG TABLET GT SCH ×2 (08:18→17:00)
[2016-08-01] MEDS: NEOMY SULF/BACITRAC ZN/POLY 15 GM TUBE TP SCH (08:19)
[2016-08-01] MEDS: FOLIC ACID 1 MG TABLET GT SCH (08:26)
[2016-08-01] MEDS: PROSOURCE / PROSTAT (PYXIS) 30 ML UDC GT SCH (08:32)
[2016-08-01] MEDS ORDERED: DEXTROSE 50%-WATER 50 ML DISP.SYRIN IV PRN (09:30)
[2016-08-01 10:16] LABS: ABG BASE EXCESS -10.2 mmol/L; ABG OXYGEN SATURATION 97.4 % (92.0-98.5); ABG PCO2 32.4 mmHg (35.0-45.0); ABG PH 7.293 (7.350-7.450); ABG PO2 122.4 mmHg (75.0-100.0); AaDO2 125.5 mmHg; COHb 0.5 % (0.5-1.5); MetHb 1.2 % (0.0-1.5); O2Hb 95.7 % (94.0-97.0); PEEP,BG 0 cm H2O; SITE, ABG Right Radial; VT, ABG 450 mL
[2016-08-01] MEDS ORDERED: LIDOCAINE 1%-EPI 1:100,000 20 ML VIAL IJ ONE (10:30)
--- NOTE | 2016-08-01 11:59 | NUR ---
STONE GLUER NOTE 0720: Received patient obtunded, opens eyes but does not follow commands. With trache to vent, tolerated settings at this time, no respiratory distress noted. With Ochoa cath intact, noted with albert colored urine drained to BSD. Noted with SBP 70, will restart Levo. GT intact, feeding tolerated well. No S/S hypo/hyperglycemia noted at this time. DELBERT PICC intact. No active bleeding noted at this time. On isolation precaution for for VRE and [place] in urine, maintained and observed. 0830: S/E by Demetris CARUSO, with order to change accucheck to q6 from q4. Temp 98.2 now. 0930: S/E by dr. Jones, no new order at this time. 1030: ABG resulted, Dr. Jones aware, changed AC 18 to 24. 1030: No any significant changes noted at this time. Off Levo, SBP remained >100.
[2016-08-01] MEDS ORDERED: LIDOCAINE 2% 20 ML MDV TP ONE (13:30)
[2016-08-01 14:41] LABS: URINE SODIUM, RANDOM 86 mmol/l (40-220)
[2016-08-01 14:43] LABS: OSMOLALITY,URINE 310 mOS/kg (340-1090)
[2016-08-01] MEDS ORDERED: SECONDARY IV SET 1 EA INFUS.SET MC ONE (17:13)
[2016-08-01] MEDS ORDERED: IV SET PRIMARY PUMP SET 1 EA INFUS.SET MC ONE (18:54)
[2016-08-01] MEDS: NOREPINEPHRINE 16 MG in IV D5W 500 ML IV PRN (18:58)
--- NOTE | 2016-08-01 21:49 | NUR ---
rn:icu: pt daughter continues to have many questions regarding the poc regarding bone marrow bx. per daughter request she would like to have her sister in law who is an rn to speak with dr rene to better understand the plan. fax number given to pt daughter to send medical records from [facility] to [facility] for dr rene to read. will endorse to [employer] to follow up with obtaining medical records. pt was restarted on levophed due to bp 60's for the past hour. pt be remains extremely labile on low dose levo. will continue to monitor closely.
[2016-08-02] VITALS (53 sets, daily range): BP systolic 75–171; BP diastolic 22–88
[2016-08-02] MEDS: IPRATROPIUM NEB FS 0.5 MG/2.5 ML AMPUL.NEB NEB SCH ×6 (03:32→23:56)
[2016-08-02] MEDS: ALBUTEROL FS 2.5 MG/3 ML VIAL.NEB NEB SCH ×6 (03:33→23:56)
[2016-08-02] MEDS: RENAL NOVASOURCE 1,000 ML BOTTLE GT PRN (04:03)
[2016-08-02] MEDS: LINEZOLID RTU BAG 600 MG in PREMIX 1 EA IV SCH ×2 (04:04→16:37)
[2016-08-02] MEDS: COLISTIMETHATE SODIUM 75 MG in IV NS 0.9% 50 ML IV SCH ×2 (05:10→18:01)
[2016-08-02] MEDS: INSULIN REGULAR, HUMAN 100 UNIT/ML 3 ML VIAL SQ PRN ×4 (05:11→23:22)
[2016-08-02] MEDS: BLOOD SUGAR DIAGNOSTIC 1 EACH STRIP IN SCH ×4 (05:11→23:22)
[2016-08-02] MEDS ORDERED: IV NS 0.9% 250 ML IV ONE (05:19)
[2016-08-02 06:37] LABS: EOSINOPHILS # (AUTO) 0.3 /CMM (0.0-0.7); EOSINOPHILS % (AUTO) 1.2 % (0.0-6.0); HEMATOCRIT 24 % (33-45); HEMOGLOBIN 8.3 g/dL (11.5-14.8); LYMPHOCYTES # (AUTO) 1.9 /CMM (0.8-4.8); LYMPHOCYTES % (AUTO) 6.6 % (20.0-44.0); MEAN CORPUSCULAR HEMOGLOBIN 30 PG (26.0-33.0); MEAN CORPUSCULAR HGB CONC 35 g/dl (31.0-36.0); MEAN CORPUSCULAR VOLUME 86 fL (82-100); MONOCYTES # (AUTO) 1.1 /CMM (0.1-1.30); MONOCYTES % (AUTO) 3.7 % (2.0-12.0); NEUTROPHILS # (AUTO) 25.2 /CMM (1.8-8.9); NEUTROPHILS % (AUTO) 88.5 % (43.0-81.0); RDW COEFFICIENT OF VARIATION 17.6 (11.5-15.0); RED BLOOD CELL COUNT(AUTO) 2.77 MIL/uL (4.0-5.2); WHITE BLOOD COUNT (AUTO) 28.5 K/uL (4.3-11.0)
[2016-08-02 06:59] LABS: PLATELET COUNT (AUTO) 34 /CMM (150-450)
[2016-08-02 07:12] LABS: CALCIUM, SERUM 8.9 mg/dL (8.5-10.1); CREATININE 1.4 mg/dL (0.6-1.3); POTASSIUM 3.3 mmol/L (3.5-5.1)
--- NOTE | 2016-08-02 07:15 | NUR ---
CLAIM INVESTIGATOR NOTES RECEIVED PATIENT OBTUNDED , OPENS EYES , TRACKING , NOT IN ACUTE DISTRESS , RESPIRATIONS EVEN AND UNLABORED WITH SPO2 OF 100% VIA MECHANICAL VENTILATOR SETTINGS ORDERED , TRACH OF PORTEX # [address] , SR 85 ON TELE MONITOR , FC DRAINING WELL VIA GRAVITY WITH CLOUDY YELLOW URINE , ON MELITA BED , GT PATENT AND INTACT WITH GTF OF NOVASOURCE @ 30ML/HR INFUSING WELL , DELBERT PICC LINE PATENT AND INTACT WITH NS @ TKO , ALL NEEDS ATTENDED , BED ON LOW AND LOCKED POSITION , SIDE RAILS X2 , HOB @ 45 , WILL CONTINUE TO MONITOR
[2016-08-02] MEDS: LABETALOL HCL (100MG) 100 MG TABLET GT SCH (07:48)
[2016-08-02] MEDS: METOPROLOL TARTRATE 25 MG TABLET GT SCH ×2 (07:49→16:38)
[2016-08-02] MEDS: FUROSEMIDE 40 MG TABLET GT SCH ×2 (07:49→16:37)
[2016-08-02 07:51] LABS: BAND % (MANUAL) 26 % (0.0-5.0); EOSINOPHILS % (MANUAL) 1 % (0-4); LYMPHOCYTES % (MANUAL) 9 % (16-48); MONOCYTES % (MANUAL) 3 % (0-11.0); NEUTROPHILS % (MANUAL) 61 (42-76)
[2016-08-02] MEDS: ZINC SULFATE 220 MG CAPSULE GT SCH (08:12)
[2016-08-02] MEDS: FERROUS SULFATE UDC 300 MG/5 ML UDC GT SCH ×3 (08:12→16:41)
[2016-08-02] MEDS: FAMOTIDINE/PF INJ 20 MG/2 ML VIAL IV SCH ×2 (08:12→21:49)
[2016-08-02] MEDS: FOLIC ACID 1 MG TABLET GT SCH (08:12)
[2016-08-02] MEDS: MULTIVITAMINS,THERAPEUTIC 1 UDTAB TABLET GT SCH (08:12)
[2016-08-02] MEDS: ASCORBIC ACID SYRUP 500 MG/5 ML UDC GT SCH (08:12)
[2016-08-02] MEDS: ACIDOPHILUS/BULGARICUS 1 EACH TAB.CHEW GT SCH (08:12)
[2016-08-02] MEDS: CADEXOMER IODINE 40 GM TUBE TP SCH (08:13)
[2016-08-02] MEDS: NEOMY SULF/BACITRAC ZN/POLY 15 GM TUBE TP SCH (08:13)
[2016-08-02] MEDS: HYDROGEL DRESSING 90 GM TUBE TP SCH (08:13)
[2016-08-02] MEDS: Z GUARD REMEDY 2 OZ OINT TP PRN (08:13)
[2016-08-02] MEDS: PROSOURCE / PROSTAT (PYXIS) 30 ML UDC GT SCH (08:14)
[2016-08-02] MEDS ORDERED: POTASSIUM CHLORIDE 20 MEQ POWDER PACKET NG SCH (11:30)
--- NOTE | 2016-08-02 12:00 | NUR ---
GRANT OFFICER NOTES ISIAH ORTEZ NP AT BEDSIDE , DISCUSSED LABS , PT STABLE AT THIS TIME , SBP OF 90 WITH NO ACTIVE BLEEDING , TOLERATING VENT SETTINGS AND GT FEEDING , AFEBRILE , LEVOPHED OFF SINCE 0500 AM TODAY , PENDING BONE MARROW BIOPSY , SHADY AWARE Addendum: 08/02/16 at 1913 by JAMES BARTH RN NOTIFIED LASIX AND METOPROLOL SHADY SHAH
[2016-08-02 12:48] LABS: INR 1.33 (0.87-1.13); PROTHROMBIN TIME 14.5 SECS (9.5-12.7)
--- NOTE | 2016-08-02 13:33 | NUR ---
BRINE WELL OPERATOR NOTES CALLED RADIOLOGY DEPARTMENT , NOTIFIED PT IS READY FOR STAT CT ABDOMEN , PER RADIOLOGIST THEY WILL CALL ME BACK IF THEY ARE READY THEY HAVE A LOT OF PT FROM ER
--- NOTE | 2016-08-02 14:51 | NUR ---
SOIL CHECKER NOTES TRANSFERRED PT VIA ACLS PROTOCOL TO RADIOLOGY FOR STAT CT OF THE ABDOMEN , PT STABLE AT THIS TIME , WILL CONTINUE TO MONITOR
[2016-08-02] MEDS ORDERED: SECONDARY IV SET 1 EA INFUS.SET MC ONE (16:33)
[2016-08-02 16:47] LABS: ABG BASE EXCESS -11.3 mmol/L; ABG OXYGEN SATURATION 96.9 % (92.0-98.5); ABG PCO2 29.9 mmHg (35.0-45.0); ABG PH 7.292 (7.350-7.450); ABG PO2 109.5 mmHg (75.0-100.0); AaDO2 141.3 mmHg; COHb 1.4 % (0.5-1.5); MetHb 1.5 % (0.0-1.5); O2Hb 94.1 % (94.0-97.0); PEEP,BG 0 cm H2O; SITE, ABG Left Brachial; VT, ABG 450 mL
--- NOTE | 2016-08-02 16:56 | NUR ---
CANE WEIGHER NOTES RELAYED ABG RESULT TO DR SHRUTHI MD AWARE , NO NEW ORDERS RECEIVED
--- NOTE | 2016-08-02 17:12 | NUR ---
BAKING POWDER MIXER NOTES NERA AT BEDSIDE , DISCUSSED LABS , AFEBRILE , NO DIARRHEA , SBP OF 90'S , OFF PRESSORS SINCE 0500AM TODAY , PER CYBER LEGAL ADVISOR DISCONTINUE OLD PICC LINE AND INSERT PERIPHERAL IV , TRIED , INSERTING PIV , UNSUCCESSFUL , PER CYBER LEGAL ADVISOR DISCONTINUE PICC ABLE BUT NO NECESSARY RIGHT NOW PT HAS NO PIV , CONTACTED NURSING DIVERSIFIED CROPS II FARMWORKER FOR PICC LINE RE INSERTION ,
[2016-08-02] MEDS: FLUCONAZOLE (100 MG) 100 MG TABLET PO SCH (18:08)
--- NOTE | 2016-08-02 18:20 | NUR ---
BIOMEDICAL ENGINEERING TECHNOLOGIST NOTES DR YOO AT BEDSIDE , DISCUSSED PT LABS , PENDING XRAY BONE SURVEY COMPLETE RESULT , NOTED WITH MINIMAL BLEEDING AT LEFT HIP , SHOW MEDICAL RECORDS SENT BY [facility] , AND ASKED MD TO FOLLOW UP WITH THE DAUGHTER REGARDING BONE MARROW BIOPSY PLAN , MD AWARE . NO NEW ORDERS RECEIVED
--- NOTE | 2016-08-02 18:31 | NUR ---
GRAPHIC TECHNICIAN NOTES RECEIVED A CALL FROM ISIAH ORTEZ NP , DISCUSSED CT ABDOMEN AND REPEAT LACTIC ACID RESULT , BP OF 95/55 AT THIS TIME , AFEBRILE , WHEEL INSPECTOR AWARE .
--- NOTE | 2016-08-02 18:53 | NUR ---
REHAB DEPARTMENT MANAGER NOTES CALLED DORITA DAUGHTER FOR PICC LINE INSERTION CONSENT , EXPLAINED THE THE OLD PICC LINE NEEDS TO BE DISCONTINUED AND SENT FOR CATHETER TIP CULTURE WBC IF ELEVATED , DAUGHTER REFUSED TO CONSENT SHE WANTS TO CALL HER BACK TOMORROW SHE REQUESTED HOSPITAL TRANSFER , PER DAUGHTER SHE WILL DECIDED TOMORROW
--- NOTE | 2016-08-02 19:15 | NUR ---
ICU OVERFLOW RN NOTE RECEIVED PATIENT, NONVERBAL, EYE TRACKING NOTED, PATIENT WITH NO ACUTE DISTRESS OR DISCOMFORT NOTED. SR AT 90s. WITH TRACH ON MECH VENT, TOLERATING SETTINGS WELL, AIRWAY SUCTIONED WITH THICK, YELLOW SECRETIONS. GTF TOLERATED WELL, NO GASTRIC RESIDUAL NOTED. F/C INTACT AND DRAINING WELL WITH CLOUDY YELLOW URINE. PATIENT'S NEEDS ANTICIPATED AND MET. SAFETY AND COMFORT ENSURED. BED IN LOW AND LOCKED POSITION. WHITSETT BED IN PLACE. WILL CONTINUE TO MONITOR.
[2016-08-02] MEDS ORDERED: IV SET PRIMARY PUMP SET 1 EA INFUS.SET MC ONE (19:33)
--- NOTE | 2016-08-02 19:40 | NUR ---
ICU OVERFLOW RN NOTE PATIENT'S SBP NOTED TO HAVE GONE DOWN TO 65/54 AND WHEN RECHECKED, 67/49. LEVOPHED PRN RESTARTED AT 2mcg/min ORDERED.
[2016-08-02] MEDS: NOREPINEPHRINE 16 MG in IV D5W 500 ML IV PRN (19:42)
--- NOTE | 2016-08-02 20:40 | NUR ---
ICU OVERFLOW RN NOTE PATIENT'S BP NOTED TO BE 171/88 AND WHEN RECHECKED, 166/82. PATIENT'S LEVOPHED TITRATED DOWN TO 1mcg/min. WILL MONITOR.
[2016-08-02] MEDS: METRONIDAZOLE 500 MG TABLET PO SCH (21:49)
--- NOTE | 2016-08-02 23:00 | NUR ---
ICU OVERFLOW RN NOTES REPORT GIVEN TO IVY ROLDAN. ENDORSED PATIENT'S CARE ACCORDINGLY. PATIENT NOT IN ANY DISTRESS. LEVOPHED INFUSING AT 1mcg/min, VS AT 118/72, 103.
--- NOTE | 2016-08-02 23:45 | NUR ---
ICU OVERFLOW RN NOTES RECEIVED PT IN STABLE STATE. ON VENT VIA TRACH AT ORDERED SETTINGS, ARNOLD WELL. TELE READS SR IN 80-90s. RUNNING LEVO AT 1 MCG/MIN TO MAINTAIN SBP >90. RUNNING NOVASOURCE VIA GT AT 30 ML/HR. NO RESIDUAL. PICC AT [facility], DRESSING INTACT. MYRICK CATH IN PLACE. MULTIPLE SKIN WOUNDS. ON KCI, HOB ELEVATED, TURNED AND REPOSITIONED.
[2016-08-03] VITALS (72 sets, daily range): BP systolic 52–182; BP diastolic 22–130
[2016-08-03] MEDS: ALBUTEROL FS 2.5 MG/3 ML VIAL.NEB NEB SCH ×6 (04:06→23:49)
[2016-08-03] MEDS: IPRATROPIUM NEB FS 0.5 MG/2.5 ML AMPUL.NEB NEB SCH ×6 (04:06→23:50)
[2016-08-03] MEDS: LINEZOLID RTU BAG 600 MG in PREMIX 1 EA IV SCH ×2 (05:14→17:28)
[2016-08-03] MEDS: METRONIDAZOLE 500 MG TABLET PO SCH ×3 (05:14→21:11)
[2016-08-03] MEDS: COLISTIMETHATE SODIUM 75 MG in IV NS 0.9% 50 ML IV SCH ×2 (05:14→17:32)
[2016-08-03] MEDS: BLOOD SUGAR DIAGNOSTIC 1 EACH STRIP IN SCH ×4 (05:14→23:59)
[2016-08-03] MEDS: INSULIN REGULAR, HUMAN 100 UNIT/ML 3 ML VIAL SQ PRN ×3 (05:23→17:28)
[2016-08-03] MEDS ORDERED: IV NS 0.9% 250 ML IV ONE ×2 (05:33→19:12)
[2016-08-03] MEDS: RENAL NOVASOURCE 1,000 ML BOTTLE GT PRN (05:51)
[2016-08-03 06:36] LABS: BASOPHILS % (AUTO) 0.2 % (0.0-2.0); EOSINOPHILS # (AUTO) 0.3 /CMM (0.0-0.7); HEMATOCRIT 21 % (33-45); HEMOGLOBIN 7.1 g/dL (11.5-14.8); LYMPHOCYTES # (AUTO) 1.9 /CMM (0.8-4.8); LYMPHOCYTES % (AUTO) 12.1 % (20.0-44.0); MEAN CORPUSCULAR HEMOGLOBIN 29 PG (26.0-33.0); MEAN CORPUSCULAR HGB CONC 34 g/dl (31.0-36.0); MEAN CORPUSCULAR VOLUME 86 fL (82-100); MONOCYTES # (AUTO) 0.9 /CMM (0.1-1.30); MONOCYTES % (AUTO) 5.6 % (2.0-12.0); NEUTROPHILS # (AUTO) 12.4 /CMM (1.8-8.9); NEUTROPHILS % (AUTO) 80.1 % (43.0-81.0); RDW COEFFICIENT OF VARIATION 17.5 (11.5-15.0); RED BLOOD CELL COUNT(AUTO) 2.41 MIL/uL (4.0-5.2); WHITE BLOOD COUNT (AUTO) 15.5 K/uL (4.3-11.0)
[2016-08-03 06:51] LABS: PLATELET COUNT (AUTO) 22 /CMM (150-450)
[2016-08-03 07:03] LABS: CALCIUM, SERUM 9.4 mg/dL (8.5-10.1); CREATININE 1.5 mg/dL (0.6-1.3); POTASSIUM 3.3 mmol/L (3.5-5.1)
--- NOTE | 2016-08-03 07:51 | NUR ---
INITIAL ICU OVERFLOW RN NOTE RCVD PT LETHARGIC, OPENS EYES SPONTANEOUSLY, DOES NOT FOLLOW COMMANDS. TOLERATING ORDERED VENT SETTINGS. SR ON TELE. MYRICK DRAINING YELLOW URINE. G-TUBE PLACEMENT VERIFIED BY AUSCULTATION/ASPIRATION. NO RESIDUAL OBTAINED. DELBERT PICC C/D/I/PATENT. IVF INFUSING NO S/O INFILTRATION OR PHLEBITIS OBSERVED. WILL CONTINUE TO MONITOR PT FOR SAFETY AND COMFORT. BED IN LOW AND LOCKED POSITION.
[2016-08-03] MEDS: FLUCONAZOLE (100 MG) 100 MG TABLET PO SCH (08:44)
[2016-08-03] MEDS: FAMOTIDINE/PF INJ 20 MG/2 ML VIAL IV SCH ×2 (08:44→21:11)
[2016-08-03] MEDS: ZINC SULFATE 220 MG CAPSULE GT SCH (08:44)
[2016-08-03] MEDS: ASCORBIC ACID SYRUP 500 MG/5 ML UDC GT SCH (08:44)
[2016-08-03] MEDS: FERROUS SULFATE UDC 300 MG/5 ML UDC GT SCH ×3 (08:44→17:28)
[2016-08-03] MEDS: FOLIC ACID 1 MG TABLET GT SCH (08:45)
[2016-08-03] MEDS: ACIDOPHILUS/BULGARICUS 1 EACH TAB.CHEW GT SCH (08:45)
[2016-08-03] MEDS: MULTIVITAMINS,THERAPEUTIC 1 UDTAB TABLET GT SCH (08:45)
[2016-08-03] MEDS: PROSOURCE / PROSTAT (PYXIS) 30 ML UDC GT SCH (08:47)
[2016-08-03] MEDS: FUROSEMIDE 40 MG TABLET GT SCH ×2 (08:48→17:00)
[2016-08-03] MEDS: LABETALOL HCL (100MG) 100 MG TABLET GT SCH (08:48)
[2016-08-03] MEDS: METOPROLOL TARTRATE 25 MG TABLET GT SCH ×2 (08:48→17:00)
[2016-08-03] MEDS: NEOMY SULF/BACITRAC ZN/POLY 15 GM TUBE TP SCH (08:49)
[2016-08-03] MEDS: CADEXOMER IODINE 40 GM TUBE TP SCH (08:49)
[2016-08-03] MEDS: HYDROGEL DRESSING 90 GM TUBE TP SCH (08:50)
--- NOTE | 2016-08-03 09:07 | NUR ---
MEDICATION NOTE BP MEDS HELD, PT ON LEVO. LASIX HELD BUN/CREAT ELEVATED.
[2016-08-03 09:25] LABS: EOSINOPHILS % (MANUAL) 2 % (0-4); LYMPHOCYTES % (MANUAL) 7 % (16-48); MONOCYTES % (MANUAL) 2 % (0-11.0); NEUTROPHILS % (MANUAL) 89 (42-76)
[2016-08-03] MEDS ORDERED: IV NS 0.9% 500 ML IV ONE ×2 (09:56→12:30)
[2016-08-03] MEDS ORDERED: POTASSIUM CHLORIDE 20 MEQ POWDER PACKET PO ONE (10:00)
[2016-08-03] MEDS ORDERED: POTASSIUM CHLORIDE 20 MEQ TAB.PRT.SR PO ONE (10:00)
--- NOTE | 2016-08-03 10:08 | NUR ---
ICU OVERFLOW NOTE SPOKE WITH SHADY JOYCE REGARDING PT'S FAMILY NEEDING TO SPEAK TO HIM PRIOR TO CONSENTING TO BONE BIOPSY AND NEW PICC LINE INSERTION. HE SAID THAT WILL CALL PT'S DAUGHTER. HE WAS INFORMED OF PT'S ABNORMAL LABS. ISIAH RECOMMENDED PRBC AND PLAT TRANSFUSION. CVP MONITORING. HE WAS INFORMED OF PT'S RIGHT HIP SMALL WOUND DRAINING SANGUINEOUS FLUID. HE ASSESSED PT AND RECOMMENDED CONSULT WITH SURGERY. WILL F/U
--- NOTE | 2016-08-03 11:31 | NUR ---
ICU OVERFLOW NOTE SCOUT SNIPER FOR SURGERY CAME TO ASSESS PT, PRESSURE DRESSING APPLIED. WILL CONTINUE TO MONITOR FOR BLEEDING.
[2016-08-03] MEDS: LANOLIN/MIN OIL/PETROLAT,WHT 3.5 GM TUBE EACHEYE SCH (12:28)
--- NOTE | 2016-08-03 13:11 | NUR ---
ICU OVERFLOW RN NOTE NS BOLUS STARTED PT'S SBP ELEVATED TO 177, LEVO STOPPED SBP 168. NS BOLUS STOPPED. SHADY JOYCE CONTACTED AND INFORMED OF ABOVE. HE AGREED AND RECOMMENDED TO F/U WITH BLOOD AND PLATELET TRANSFUSION. CONTINUE WITH CVP MONITORING 8-10 AND KEEP MAP > 65. RE-START LEVO FOR MAP <65. WILL CONTINUE TO MONITOR.
[2016-08-03 14:17] LABS: *IFEU ALBUMIN 13.9 % (.); *IFEU ALPHA-1-GLOBULIN 2.4 % (.); *IFEU ALPHA-2-GLOBULIN 7.9 % (.); *IFEU BETA GLOBULIN 27.7 % (.); *IFEU GAMMA GLOBULIN 48.1 % (.); *IFEU IMMUNOFIXATION RESULT Note: (.); *IFEU M-SPIKE 12.7 % (Not Observed); *PEU PROTEIN,TOTAL 13.6 mg/dL (Not Estab.)
--- NOTE | 2016-08-03 15:15 | NUR ---
ICU OVERFLOW RN NOTE PT'S DELBERT PICC LINE DISCONTINUED, CATH TIP SENT OUT FOR CULTURE. ROSALVA PICC IN PLACE. NO BLEEDING OBSERVED AT DELBERT PICC SITE. PRESSURE DRESSING IN PLACE.
[2016-08-03] MEDS ORDERED: LEVOFLOXACIN (500MG) 500 MG TABLET PO SCH (17:00)
[2016-08-03] MEDS: NOREPINEPHRINE 16 MG in IV D5W 500 ML IV PRN (17:26)
[2016-08-03] MEDS ORDERED: LEVOFLOXACIN (500MG) 500 MG TABLET PO ONE (17:30)
[2016-08-03] MEDS ORDERED: IV SET PRIMARY PUMP SET 1 EA INFUS.SET MC ONE (17:32)
--- NOTE | 2016-08-03 17:34 | NUR ---
ICU OVERFLOW RN NOTE BP MEDS HELD, PT CONTINUES TO BE ON VASOPRESSORS. WILL CONTINUE TO MONITOR.
--- NOTE | 2016-08-03 18:41 | NUR ---
ICU OVERFLOW RN NOTE PT REMAINS WITH LABILE BP, OPENS EYES, REACTS TO TOUCH. TOLERATING ORDERED VENT SETTINGS, SR-ST ON TELE. MYRICK DRAINING YELLOW URINE. CONTINUES TO TOLERATE TUBE FEEDING RATE. NO RESIDUAL OBTAINED. DELBERT PICC WAS DISCONTINUED AND ROSALVA PICC IS IN PLACE. C/D/I/PATENT. NO S/O INFILTRATION OR PHLEBITIS OBSERVED. IVF INFUSING. PT'S CARE WILL BE ENDORSED TO TRANSLITERATOR RN FOR CONTINUITY OF CARE AT CHANGE OF SHIFT.
[2016-08-03] MEDS ORDERED: BLOOD IV SET 1 EA INFUS.SET MC ONE (19:12)
[2016-08-03] MEDS ORDERED: PLATELET IV SET 1 EA INFUS.SET MC ONE (19:12)
--- NOTE | 2016-08-03 19:38 | NUR ---
PT RCVD ON VENT WITH NOTED SETTINGS. SXN MODERATE AMOUNT OF YELLOWISH PRICE THICK SECRETIONS. BILATERAL BS NOTED. VENT ALARM CHECKED AND AUDIBLE. VENT PLUGGED INTO RED OUTLET,AMBU BAG AT [facility]. NO RESPIRATORY DISTRESS NOTED, WILL CONTINUE TO MONITOR.
--- NOTE | 2016-08-03 20:24 | NUR ---
MANAGER [employer] PLATELETS TRANSFUSED. PT TOLERATED WELL. NO IMMEDIATE S/O OF REACTIONS. CONTINUE TO MONITOR.
[2016-08-04] VITALS (108 sets, daily range): BP systolic 67–157; BP diastolic 34–112
[2016-08-04] MEDS: Z GUARD REMEDY 2 OZ OINT TP PRN (00:01)
[2016-08-04] MEDS: INSULIN REGULAR, HUMAN 100 UNIT/ML 3 ML VIAL SQ PRN ×5 (00:02→23:55)
[2016-08-04] MEDS: IPRATROPIUM NEB FS 0.5 MG/2.5 ML AMPUL.NEB NEB SCH ×6 (03:43→23:40)
[2016-08-04] MEDS: ALBUTEROL FS 2.5 MG/3 ML VIAL.NEB NEB SCH ×6 (03:43→23:40)
[2016-08-04] MEDS: LINEZOLID RTU BAG 600 MG in PREMIX 1 EA IV SCH ×2 (04:30→17:13)
[2016-08-04] MEDS: METRONIDAZOLE 500 MG TABLET PO SCH ×2 (05:44→12:24)
[2016-08-04] MEDS: BLOOD SUGAR DIAGNOSTIC 1 EACH STRIP IN SCH ×4 (06:31→23:44)
[2016-08-04] MEDS: COLISTIMETHATE SODIUM 75 MG in IV NS 0.9% 50 ML IV SCH ×2 (06:31→17:22)
--- NOTE | 2016-08-04 06:56 | NUR ---
TRANSPLANT NURSE PRACTITIONER LOW HG 5.3 PER PICC LINE; LAB WILL DRAW PERIPHERALLY TO VERIFY. ENDORSE TO NEXT SHIFT.
--- NOTE | 2016-08-04 06:58 | NUR ---
HOG KILLER MULTIPLE ATTEMPTS TO WEAN OFF LEVOPHED; PT BP DROPS TO 80 WHEN OFF FOR A FEW MINUTES RESTART AT 0.5 MCG/MIN BP IN THE 150s. CONTINUE TO MONITOR AND TITRATE OFF ACCORDINGLY.
[2016-08-04 07:25] LABS: CALCIUM, SERUM 10.1 mg/dL (8.5-10.1); CREATININE 1.6 mg/dL (0.6-1.3); MAGNESIUM 1.6 mg/dL (1.8-2.4); POTASSIUM 3.1 mmol/L (3.5-5.1)
[2016-08-04 07:54] LABS: BASOPHILS % (AUTO) 0.1 % (0.0-2.0); EOSINOPHILS # (AUTO) 0.5 /CMM (0.0-0.7); EOSINOPHILS % (AUTO) 2.5 % (0.0-6.0); HEMATOCRIT 27 % (33-45); HEMOGLOBIN 9.1 g/dL (11.5-14.8); LYMPHOCYTES # (AUTO) 2.1 /CMM (0.8-4.8); LYMPHOCYTES % (AUTO) 9.7 % (20.0-44.0); MEAN CORPUSCULAR HEMOGLOBIN 30 PG (26.0-33.0); MEAN CORPUSCULAR HGB CONC 34 g/dl (31.0-36.0); MEAN CORPUSCULAR VOLUME 88 fL (82-100); MONOCYTES % (AUTO) 4.9 % (2.0-12.0); NEUTROPHILS # (AUTO) 17.9 /CMM (1.8-8.9); NEUTROPHILS % (AUTO) 82.8 % (43.0-81.0); RDW COEFFICIENT OF VARIATION 16.8 (11.5-15.0); RED BLOOD CELL COUNT(AUTO) 3.06 MIL/uL (4.0-5.2); WHITE BLOOD COUNT (AUTO) 21.6 K/uL (4.3-11.0)
[2016-08-04 07:57] LABS: PLATELET COUNT (AUTO) 30 /CMM (150-450)
--- NOTE | 2016-08-04 08:00 | NUR ---
HOME INSPECTOR: pt.is obtunded, able to open eyes, no tracking, no grimacing, unable to follow commands, weak spont.arms activity, all wounds care is done ecclesiastical worker/dressings are intact/clear, multiple bleeding history, BP 117/69, stopped Levophed gtt, CVP "0"ed: 11-13, GTF residual WNL, O2 sat. WNL, SR, Na 134, K3.1, Mg1.6: will s/w MD, CBC is pending, T96.7/warming measures initiated
[2016-08-04 08:17] LABS: BAND % (MANUAL) 3 % (0.0-5.0); LYMPHOCYTES % (MANUAL) 13 % (16-48); MONOCYTES % (MANUAL) 2 % (0-11.0); NEUTROPHILS % (MANUAL) 82 (42-76)
--- NOTE | 2016-08-04 08:50 | NUR ---
HOUSEKEEPER NANNY: SBP 78-86, restarted Levophed gtt
[2016-08-04] MEDS: LABETALOL HCL (100MG) 100 MG TABLET GT SCH (09:00)
[2016-08-04] MEDS: METOPROLOL TARTRATE 25 MG TABLET GT SCH ×2 (09:00→17:00)
[2016-08-04] MEDS: FLUCONAZOLE (100 MG) 100 MG TABLET PO SCH (09:34)
[2016-08-04] MEDS: ASCORBIC ACID SYRUP 500 MG/5 ML UDC GT SCH (09:34)
[2016-08-04] MEDS: FOLIC ACID 1 MG TABLET GT SCH (09:34)
[2016-08-04] MEDS: PROSOURCE / PROSTAT (PYXIS) 30 ML UDC GT SCH (09:34)
[2016-08-04] MEDS: MULTIVITAMINS,THERAPEUTIC 1 UDTAB TABLET GT SCH (09:34)
[2016-08-04] MEDS: ZINC SULFATE 220 MG CAPSULE GT SCH (09:34)
[2016-08-04] MEDS: FERROUS SULFATE UDC 300 MG/5 ML UDC GT SCH ×3 (09:34→17:13)
[2016-08-04] MEDS: FUROSEMIDE 40 MG TABLET GT SCH (09:34)
[2016-08-04] MEDS: ACIDOPHILUS/BULGARICUS 1 EACH TAB.CHEW GT SCH (09:34)
[2016-08-04] MEDS: HYDROGEL DRESSING 90 GM TUBE TP SCH (09:37)
[2016-08-04] MEDS: CADEXOMER IODINE 40 GM TUBE TP SCH (09:37)
[2016-08-04] MEDS: FAMOTIDINE/PF INJ 20 MG/2 ML VIAL IV SCH ×2 (09:37→20:54)
[2016-08-04] MEDS: NEOMY SULF/BACITRAC ZN/POLY 15 GM TUBE TP SCH (09:37)
[2016-08-04] MEDS: LANOLIN/MIN OIL/PETROLAT,WHT 3.5 GM TUBE EACHEYE SCH (09:39)
--- NOTE | 2016-08-04 10:00 | NUR ---
BATTING MACHINE OPERATOR: SHADY Hamm is in room, updated with pt.current condition, VS, Levophed gtt, I/O, GTF, wounds status, meds, critical labs, CVP, see new orders
--- NOTE | 2016-08-04 10:10 | NUR ---
ACCOUNT ASSOCIATE: SHADY Hamm checked R.Hip dressing (intact/clean), said: keep on
[2016-08-04] MEDS ORDERED: POTASSIUM CHLORIDE 20 MEQ TAB.PRT.SR PO ONE (10:30)
[2016-08-04] MEDS ORDERED: MAGNESIUM OXIDE 400 MG TABLET PO ONE (10:30)
--- NOTE | 2016-08-04 10:30 | NUR ---
DRYLAND FARMER: Na 134, will use NS for GT flushing, notified RT re ABG per SHADY Hamm order
--- NOTE | 2016-08-04 11:10 | NUR ---
HADOOP ENGINEER: is in room, updated with pt.VS, T, Levophed gtt 0.5 mcg now, I/O, O2sat., GTF
--- NOTE | 2016-08-04 11:35 | NUR ---
CELLAR PUMPER: SHADY Henley notified re pt.current condition, VS, platelets [id number] (order for 2 units of platelets pheresis today per SHDAY Hamm), wounds status, Levophed gtt, she did R.Hip wound silver stick hemostasis yesterday, said keep on dressing
--- NOTE | 2016-08-04 12:50 | NUR ---
CADDY: is in room, updated with pt.status, VS, labs, one PRBC unit and one platelets pheresis unit were done over night, Levophed gtt, order for two platelets pheresis transfuse today, checked R.Hip dressing-no acute bleeding, spoke with SHADY Hamm, - ordered: cancel 2 platelets pheresis units transfusion today, blood bank was notified
--- NOTE | 2016-08-04 13:05 | NUR ---
LINK WIRE FABRIC MACHINE OPERATOR: for cancel 2 plat.pheresis units order comp.system shows: cannot cancel procedure, cancel request previously denies, misc.order was placed in
[2016-08-04] MEDS ORDERED: LEVOFLOXACIN (500MG) 500 MG TABLET PO ONE (17:00)
[2016-08-04] MEDS ORDERED: SECONDARY IV SET 1 EA INFUS.SET MC ONE (17:13)
[2016-08-04] MEDS: LEVOFLOXACIN (250MG) 250 MG TABLET PO SCH (17:13)
--- NOTE | 2016-08-04 18:27 | NUR ---
CERTIFIED NUTRITIONIST: did 2 attempts to stop Levophed gtt during shift, but resumed x2, BP were dropped down to 78-85, rate 0.5-1 mcg/min during shift, SR/St max 110, O2 sat. WNL, changed wounds dressings/no acute bleeding, R.hip dressing is intact/dry, GTF residual WNL, used NS for GT flushing
--- NOTE | 2016-08-04 19:30 | NUR ---
ICU OVERFLOW RN INITIAL NOTE RECEIVED REPORT FROM REGINALDO ALARM INVESTIGATOR. PT IN BED. OBTUNDED. CHRONIC VENT TRACH, TOLERATING CURRENT VENT SETTINGS. LUNG SOUNDS RHONCHI. CVP MONITORING CURRENTLY AT 8. BP STABLE WITH LEVOPHED AT [address] ON MONITOR. MYRICK INTACT AND DRAINING URINE. IV PATENT AND INTACT. MULTIPLE SKIN ISSUES. GT PATENT AND INTACT WITH FEEDING RUNNING. BED IN LOW LOCKED POSITION. WILL CONTINUE TO MONITOR.
[2016-08-04 21:09] LABS: ABG BASE EXCESS -11.9 mmol/L; ABG OXYGEN SATURATION 96.6 % (92.0-98.5); ABG PCO2 33.9 mmHg (35.0-45.0); ABG PH 7.245 (7.350-7.450); ABG PO2 107.9 mmHg (75.0-100.0); AaDO2 138.3 mmHg; COHb 0.6 % (0.5-1.5); MetHb 1.3 % (0.0-1.5); O2Hb 94.8 % (94.0-97.0); SITE, ABG Right Radial; VENT MODE, BG AC 24 450 40%
[2016-08-04] MEDS ORDERED: SODIUM BICARBONATE SYR 50 MEQ/50 ML DISP.SYRIN IV ONE (22:00)
[2016-08-04] MEDS ORDERED: SODIUM BICARBONATE SYR 50 MEQ/50 ML DISP.SYRIN ONE ×2 (22:06→22:09)
[2016-08-04] MEDS ORDERED: IV D5W 1,000 ML IV ONE ×2 (22:09→22:19)
--- NOTE | 2016-08-04 22:10 | NUR ---
ICU OVERFLOW RN ABG RESULTS CALLED INTO [facility]. DR DURHAM NEGATIVE NOTCHER, AWAITING CALL BACK.
[2016-08-04] MEDS: RENAL NOVASOURCE 1,000 ML BOTTLE GT PRN (22:12)
[2016-08-04] MEDS ORDERED: IV SET PRIMARY PUMP SET 1 EA INFUS.SET MC ONE ×2 (22:13→22:18)
--- NOTE | 2016-08-04 22:15 | NUR ---
ICU OVERFLOW RN DR DURHAM-ESCAPE WHEEL TOOTH CUTTER CALLED. ORDERED RECEIVED. WILL ENTER ORDER AND ADMINISTER MEDICATION. WILL CONTINUE TO MONITOR.
[2016-08-04] MEDS: Sodium Bicarbonate 100 MEQ in IV D5W 1,000 ML IV PRN (22:28)
--- NOTE | 2016-08-04 22:29 | NUR ---
NON ADMIN FOR PATIENT SAFETY
[2016-08-05] VITALS (104 sets, daily range): BP systolic 66–194; BP diastolic 8–110
[2016-08-05] MEDS ORDERED: IV NS 0.9% 500 ML IV ONE ×3 (02:52→10:42)
[2016-08-05] MEDS ORDERED: IV NS 0.9% 500 ML BAG IV PRN (03:00)
[2016-08-05] MEDS ORDERED: IV NS 0.9% 1,000 ML IV PRN (03:00)
[2016-08-05] MEDS: IPRATROPIUM NEB FS 0.5 MG/2.5 ML AMPUL.NEB NEB SCH ×6 (03:42→23:10)
[2016-08-05] MEDS: ALBUTEROL FS 2.5 MG/3 ML VIAL.NEB NEB SCH ×6 (03:43→23:10)
[2016-08-05] MEDS: LINEZOLID RTU BAG 600 MG in PREMIX 1 EA IV SCH ×2 (04:45→17:28)
[2016-08-05] MEDS: BLOOD SUGAR DIAGNOSTIC 1 EACH STRIP IN SCH ×4 (06:19→23:49)
[2016-08-05] MEDS: INSULIN REGULAR, HUMAN 100 UNIT/ML 3 ML VIAL SQ PRN ×4 (06:20→23:50)
[2016-08-05] MEDS: COLISTIMETHATE SODIUM 75 MG in IV NS 0.9% 50 ML IV SCH ×2 (06:51→17:28)
[2016-08-05 06:59] LABS: BASOPHILS % (AUTO) 0.1 % (0.0-2.0); EOSINOPHILS # (AUTO) 0.5 /CMM (0.0-0.7); EOSINOPHILS % (AUTO) 2.4 % (0.0-6.0); HEMATOCRIT 25 % (33-45); HEMOGLOBIN 8.4 g/dL (11.5-14.8); LYMPHOCYTES # (AUTO) 2.2 /CMM (0.8-4.8); LYMPHOCYTES % (AUTO) 10.4 % (20.0-44.0); MEAN CORPUSCULAR HEMOGLOBIN 30 PG (26.0-33.0); MEAN CORPUSCULAR HGB CONC 34 g/dl (31.0-36.0); MEAN CORPUSCULAR VOLUME 88 fL (82-100); MONOCYTES # (AUTO) 0.9 /CMM (0.1-1.30); MONOCYTES % (AUTO) 4.3 % (2.0-12.0); NEUTROPHILS # (AUTO) 17.7 /CMM (1.8-8.9); NEUTROPHILS % (AUTO) 82.8 % (43.0-81.0); RDW COEFFICIENT OF VARIATION 17.3 (11.5-15.0); RED BLOOD CELL COUNT(AUTO) 2.83 MIL/uL (4.0-5.2); WHITE BLOOD COUNT (AUTO) 21.3 K/uL (4.3-11.0)
[2016-08-05 07:40] LABS: CALCIUM, SERUM 10.9 mg/dL (8.5-10.1); CREATININE 1.7 mg/dL (0.6-1.3); MAGNESIUM 1.6 mg/dL (1.8-2.4); POTASSIUM 3.3 mmol/L (3.5-5.1)
[2016-08-05 07:43] LABS: PLATELET COUNT (AUTO) 24 /CMM (150-450)
[2016-08-05 08:01] LABS: BAND % (MANUAL) 1 % (0.0-5.0); EOSINOPHILS % (MANUAL) 4 % (0-4); LYMPHOCYTES % (MANUAL) 10 % (16-48); MONOCYTES % (MANUAL) 4 % (0-11.0); NEUTROPHILS % (MANUAL) 81 (42-76)
[2016-08-05] MEDS: METOPROLOL TARTRATE 25 MG TABLET GT SCH ×2 (09:00→16:29)
[2016-08-05] MEDS: LABETALOL HCL (100MG) 100 MG TABLET GT SCH (09:00)
[2016-08-05] MEDS ORDERED: POTASSIUM CL. PREMIX PERIPHER. 50 ML IV SCH (09:54)
[2016-08-05] MEDS ORDERED: Magnesium 1GM/D5W 100ML PREMIX 100 ML IV SCH (10:38)
[2016-08-05] MEDS ORDERED: SECONDARY IV SET 1 EA INFUS.SET MC ONE (10:42)
[2016-08-05 10:43] LABS: ABG BASE EXCESS -9.3 mmol/L; ABG OXYGEN SATURATION 96.9 % (92.0-98.5); ABG PCO2 35.4 mmHg (35.0-45.0); ABG PH 7.287 (7.350-7.450); ABG PO2 106.8 mmHg (75.0-100.0); AaDO2 137.7 mmHg; SITE, ABG Right Brachial; VENT MODE, BG AC 24 450 40%; VT, ABG 450 mL
[2016-08-05] MEDS: FERROUS SULFATE UDC 300 MG/5 ML UDC GT SCH ×3 (10:49→17:28)
[2016-08-05] MEDS: ASCORBIC ACID SYRUP 500 MG/5 ML UDC GT SCH (10:49)
[2016-08-05] MEDS: ACIDOPHILUS/BULGARICUS 1 EACH TAB.CHEW GT SCH (10:49)
[2016-08-05] MEDS: ZINC SULFATE 220 MG CAPSULE GT SCH (10:49)
[2016-08-05] MEDS: FOLIC ACID 1 MG TABLET GT SCH (10:49)
[2016-08-05] MEDS: MULTIVITAMINS,THERAPEUTIC 1 UDTAB TABLET GT SCH (10:49)
[2016-08-05] MEDS: FAMOTIDINE/PF INJ 20 MG/2 ML VIAL IV SCH ×2 (10:50→21:10)
[2016-08-05] MEDS: HYDROGEL DRESSING 90 GM TUBE TP SCH (10:51)
[2016-08-05] MEDS: PROSOURCE / PROSTAT (PYXIS) 30 ML UDC GT SCH (10:52)
[2016-08-05] MEDS: CADEXOMER IODINE 40 GM TUBE TP SCH (10:52)
[2016-08-05] MEDS: NEOMY SULF/BACITRAC ZN/POLY 15 GM TUBE TP SCH (10:52)
[2016-08-05] MEDS: LANOLIN/MIN OIL/PETROLAT,WHT 3.5 GM TUBE EACHEYE SCH (10:53)
[2016-08-05] MEDS ORDERED: IV NS 0.9% 250 ML IV ONE (10:57)
[2016-08-05] MEDS ORDERED: IV SET PRIMARY PUMP SET 1 EA INFUS.SET MC ONE (10:57)
--- NOTE | 2016-08-05 11:20 | NUR ---
R/V'D PT IN MY [facility]AC[facility] ICU CHARGE NURSE WITH DR HAWKINS AND ICU NURSE LUIS MANUEL. NO CHANGE IN RX AT THIS TIME
[2016-08-05] MEDS: Sodium Bicarbonate 100 MEQ in IV D5W 1,000 ML IV PRN (12:50)
[2016-08-05] MEDS: LEVOFLOXACIN (250MG) 250 MG TABLET PO SCH (17:28)
[2016-08-05] MEDS: NOREPINEPHRINE 16 MG in IV D5W 500 ML IV PRN (17:29)
--- NOTE | 2016-08-05 19:30 | NUR ---
RN INITIAL NOTE RECEIVED PT IN NO ACUTE DISTRESS IN BED. PT IS OBTUNDED BUT OPENS EYES. PT IS NON VERBAL. PT IS ON MECHANICAL VENT VIA TRACH. TRACH SITE IS CLEAN DRY AND INTACT. PT TOLERATING VENT SETTING WELL WITH O2 SAT @ 100%. VENT SETTING ARE AC 24, TV 450, FIO2 40%, 0 PEEP. PT IS ON TELE WITH SR-ST ON THE MONITOR. PT HAS F/C THAT IS CLEAN DRY INTACT AND PATENT WITH CLEAR YELLOW URINE DRAINING. PT HAS GTUBE THAT IS CLEAN DRY INTACT AND PATENT WITH 0 RESIDUAL. PT TOLERATING FEEDING @ 30ML/HR. PT HAS ROSALVA PICC WITH NS @ TKO, LEVOPHED TITRATED TO KEEP MEAN BP > 65, SODIUM BICARB @ 75ML/HR, CVP @ 14. BED IN LOW LOCK POSITION WITH RIALS UP X 2. CALL LIGHT WITHIN REACH AND ALL SAFETY MEASURES ENSURED AND CARRIED OUT. WILL CONTINUE TO MONITOR PT.
[2016-08-06] VITALS (95 sets, daily range): BP systolic 78–172; BP diastolic 44–99
[2016-08-06] MEDS ORDERED: IV NS 0.9% 250 ML IV ONE (00:49)
[2016-08-06] MEDS: Sodium Bicarbonate 100 MEQ in IV D5W 1,000 ML IV PRN ×2 (02:06→23:46)
[2016-08-06] MEDS: ALBUTEROL FS 2.5 MG/3 ML VIAL.NEB NEB SCH ×6 (03:18→23:43)
[2016-08-06] MEDS: IPRATROPIUM NEB FS 0.5 MG/2.5 ML AMPUL.NEB NEB SCH ×6 (03:18→23:43)
--- NOTE | 2016-08-06 04:00 | NUR ---
RN NOTE PT TEMP IS 92.9. WILL PLACE SHELLEY KIKOER TO INCREASE TEMP AND WILL REASSESS.
[2016-08-06] MEDS ORDERED: IV SET PRIMARY PUMP SET 1 EA INFUS.SET MC ONE ×2 (04:30→13:56)
--- NOTE | 2016-08-06 05:00 | NUR ---
RN NOTE PT TEMP IS NOW 97.4. WILL MAINTAIN SHELLEY QUIROZ AND ENDORSE TO AM RN FOR CONTINUITY OF CARE.
[2016-08-06] MEDS: LINEZOLID RTU BAG 600 MG in PREMIX 1 EA IV SCH (05:15)
[2016-08-06] MEDS: BLOOD SUGAR DIAGNOSTIC 1 EACH STRIP IN SCH ×3 (05:37→17:11)
[2016-08-06] MEDS: INSULIN REGULAR, HUMAN 100 UNIT/ML 3 ML VIAL SQ PRN ×2 (05:39→11:11)
[2016-08-06 06:39] LABS: EOSINOPHILS # (AUTO) 0.4 /CMM (0.0-0.7); EOSINOPHILS % (AUTO) 3.1 % (0.0-6.0); HEMATOCRIT 23 % (33-45); LYMPHOCYTES # (AUTO) 1.6 /CMM (0.8-4.8); LYMPHOCYTES % (AUTO) 11.5 % (20.0-44.0); MEAN CORPUSCULAR HEMOGLOBIN 30 PG (26.0-33.0); MEAN CORPUSCULAR HGB CONC 35 g/dl (31.0-36.0); MEAN CORPUSCULAR VOLUME 87 fL (82-100); MONOCYTES # (AUTO) 0.5 /CMM (0.1-1.30); MONOCYTES % (AUTO) 3.6 % (2.0-12.0); NEUTROPHILS % (AUTO) 81.8 % (43.0-81.0); RDW COEFFICIENT OF VARIATION 17.6 (11.5-15.0); RED BLOOD CELL COUNT(AUTO) 2.63 MIL/uL (4.0-5.2); WHITE BLOOD COUNT (AUTO) 13.5 K/uL (4.3-11.0)
[2016-08-06 06:42] LABS: CALCIUM, SERUM 11.1 mg/dL (8.5-10.1); CREATININE 1.6 mg/dL (0.6-1.3); MAGNESIUM 1.7 mg/dL (1.8-2.4)
--- NOTE | 2016-08-06 06:55 | NUR ---
RN CLOSING NOTE PT REMAINS IN NO ACUTE DISTRESS IN BED. PT DID NOT HAVE ANY SIGNIFICANT CHANGE IN CONDITION DURING SHIFT. PT MEAN BP MAINTAINED > 65. ALL NEEDS MET ALL ORDERS CARRIED OUT. WILL ENDORSE CARE TO AM RN FOR CONTINUITY OF CARE.
[2016-08-06] MEDS: COLISTIMETHATE SODIUM 75 MG in IV NS 0.9% 50 ML IV SCH ×2 (07:17→17:10)
[2016-08-06 07:36] LABS: PLATELET COUNT (AUTO) 13 /CMM (150-450)
--- NOTE | 2016-08-06 08:00 | NUR ---
HOURLY ASSOCIATE INITIAL NOTE- RECEIVED PT AT 0800 ICU OVERFLOW. PT OBTUNDED. ON MECHANICAL VENT, SETTINGS ORDERED, RESPIRATIONS EVEN AND UNLABORED, NO SOB OR DISTRESS PRESENT, SATURATING AT 100%. BEDSIDE MONITOR REVEALS SINUS TACHYCARDIA, HR= 105. ROSALVA PICC LINE PRESENT RUNNING 1) BICARB GTT @ 75 MLS/HR, 2) LEVOPHED @ 0.5 MCG/MIN WITH ONGOING CVP MONITORING. G-TUBE PRESENT AND RUNNING NOVASOURCE @ 30 MLS/HR. MYRICK CATHETER DRAINING TO GRAVITY CLEAR, YELLOW URINE. PT WITH NO ACTIVE S/S OF BLEEDING NOTED. SAFETY MEASURES TAKEN: BED LOCKED AND IN LOW POSITION, SIDE RAILS UP X2 AND BED ALARM ON, WILL CONTINUE TO MONITOR.
[2016-08-06] MEDS: METOPROLOL TARTRATE 25 MG TABLET GT SCH ×2 (09:00→16:36)
[2016-08-06] MEDS: LABETALOL HCL (100MG) 100 MG TABLET GT SCH (09:00)
[2016-08-06] MEDS: ASCORBIC ACID SYRUP 500 MG/5 ML UDC GT SCH (09:13)
[2016-08-06] MEDS: ACIDOPHILUS/BULGARICUS 1 EACH TAB.CHEW GT SCH (09:13)
[2016-08-06] MEDS: FERROUS SULFATE UDC 300 MG/5 ML UDC GT SCH ×3 (09:13→17:10)
[2016-08-06] MEDS: ZINC SULFATE 220 MG CAPSULE GT SCH (09:13)
[2016-08-06] MEDS: FOLIC ACID 1 MG TABLET GT SCH (09:13)
[2016-08-06] MEDS: MULTIVITAMINS,THERAPEUTIC 1 UDTAB TABLET GT SCH (09:13)
[2016-08-06] MEDS: FAMOTIDINE/PF INJ 20 MG/2 ML VIAL IV SCH ×2 (09:13→21:27)
[2016-08-06] MEDS: HYDROGEL DRESSING 90 GM TUBE TP SCH (09:14)
[2016-08-06] MEDS: NEOMY SULF/BACITRAC ZN/POLY 15 GM TUBE TP SCH (09:15)
[2016-08-06] MEDS: LANOLIN/MIN OIL/PETROLAT,WHT 3.5 GM TUBE EACHEYE SCH (09:15)
[2016-08-06] MEDS ORDERED: MAGNESIUM OXIDE 400 MG TABLET PO ONE (09:30)
[2016-08-06] MEDS: PROSOURCE / PROSTAT (PYXIS) 30 ML UDC GT SCH (09:36)
[2016-08-06] MEDS ORDERED: SECONDARY IV SET 1 EA INFUS.SET MC ONE ×2 (09:53→21:26)
[2016-08-06] MEDS: POTASSIUM CL. PREMIX PERIPHER. 50 ML IV SCH ×3 (10:00→12:12)
[2016-08-06 10:08] LABS: EOSINOPHILS % (MANUAL) 5 % (0-4); LYMPHOCYTES % (MANUAL) 9 % (16-48); MONOCYTES % (MANUAL) 5 % (0-11.0); NEUTROPHILS % (MANUAL) 81 (42-76)
[2016-08-06] MEDS: CADEXOMER IODINE 40 GM TUBE TP SCH (11:07)
--- NOTE | 2016-08-06 12:00 | NUR ---
DANCING INSTRUCTOR- SUCTIONED PT ORALLY AND NOTICED BLEEDING COMING FROM MOUTH. INFORMED Charisse ORTEZ NP. NO NEW ORDERS NOTED. WILL CONTINUE TO MONITOR.
--- NOTE | 2016-08-06 13:00 | NUR ---
LIVING SUPERVISOR- DR. YOO AT BEDSIDE. UPDATED ON PT'S CONDITION. INFORMED MD OF ACTIVE BLEEDING NOTED FROM PT'S MOUTH. PER MD, TRANSFUSE 1 UNIT PLATELETS. MD TO PUT ORDER IN. WILL CONTINUE TO MONITOR.
[2016-08-06] MEDS: ALBUMIN 25% 25 GM in PREMIX 1 EA IV SCH (14:00)
[2016-08-06 15:38] LABS: D-DIMER 2.73 mg/L(FEU (0.17-0.50); INR 1.47 (0.87-1.13); PROTHROMBIN TIME 16.1 SECS (9.5-12.7)
[2016-08-06] MEDS ORDERED: IV NS 0.9% 500 ML IV ONE (15:51)
--- NOTE | 2016-08-06 16:00 | NUR ---
SECRETARY TO BOARD OF COMMISSIONERS- PICC LINE DRESSING CHANGED UNDER ASEPTIC TECHNIQUE. DRESSING CHANGED DUE TO BLEEDING FROM SITE. PT TOLERATED PROCEDURE WELL. WILL CONTINUE TO MONITOR.
--- NOTE | 2016-08-06 16:23 | NUR ---
LUMBER MOVER- CALLED BLOOD BANK FOR UPDATE ON 1 UNIT OF PLATELETS. PER ORE SAMPLER, WAITING FOR PLATELETS FROM [facility]. WILL CALL ME BACK WHEN IT IS AVAILABLE. WILL CONTINUE TO MONITOR.
[2016-08-06] MEDS: LEVOFLOXACIN (250MG) 250 MG TABLET PO SCH (17:10)
[2016-08-06] MEDS: NOREPINEPHRINE 16 MG in IV D5W 500 ML IV PRN (17:10)
[2016-08-06] MEDS ORDERED: PLATELET IV SET 1 EA INFUS.SET MC ONE (17:53)
--- NOTE | 2016-08-06 18:40 | NUR ---
OPEN HEARTH LABORER- PLATELETS STILL NOT READY FOR TRANSFUSION. WILL ENDORSE 1 UNIT OF PLATELETS TO SOLDERER BARREL RIBS NURSE. WILL CONTINUE TO MONITOR.
--- NOTE | 2016-08-06 19:20 | NUR ---
RN INITIAL NOTE RECEIVED PT IN NO ACUTE DISTRESS IN BED. PT IS OBTUNDED BUT OPENS EYES. PT IS NON VERBAL. PT IS ON MECHANICAL VENT VIA TRACH. TRACH SITE IS CLEAN DRY AND INTACT. PT TOLERATING VENT SETTING WELL WITH O2 SAT @ 100%. VENT SETTING ARE AC 24, TV 450, FIO2 40%, 0 PEEP. PT IS ON TELE WITH SR-ST ON THE MONITOR. PT HAS F/C THAT IS CLEAN DRY INTACT AND PATENT WITH CLEAR YELLOW URINE DRAINING. PT HAS GTUBE THAT IS CLEAN DRY INTACT AND PATENT WITH 0 RESIDUAL. PT TOLERATING FEEDING @ 30ML/HR. PT HAS ROSALVA PICC WITH NS @ TKO, LEVOPHED TITRATED TO KEEP MEAN BP > 65, SODIUM BICARB @ 75ML/HR, CVP @ 14. PT HAS PLATELETS ORDERED FOR TRANSFUSION. PENDING ARRIVAL TO LAB. BED IN LOW LOCK POSITION WITH RIALS UP X 2. CALL LIGHT WITHIN REACH AND ALL SAFETY MEASURES ENSURED AND CARRIED OUT. WILL CONTINUE TO MONITOR PT.
[2016-08-06] MEDS: AMPICILLIN SODIUM 1 GM in IV NS 0.9% 100 ML IV SCH (21:27)
[2016-08-06] MEDS: DOXYCYCLINE 100 MG in IV D5W 100 ML IV SCH (22:49)
[2016-08-07] VITALS (72 sets, daily range): BP systolic 65–178; BP diastolic 41–103
--- NOTE | 2016-08-07 | NUR ---
RN NOTE PT CVP CALIBRATED AND ZERO'D. WILL CONTINUE TO MONITOR.
[2016-08-07] MEDS: BLOOD SUGAR DIAGNOSTIC 1 EACH STRIP IN SCH ×4 (00:59→17:28)
[2016-08-07] MEDS: ALBUMIN 25% 25 GM in PREMIX 1 EA IV SCH (01:08)
[2016-08-07] MEDS: AMPICILLIN SODIUM 1 GM in IV NS 0.9% 100 ML IV SCH ×3 (04:00→20:02)
[2016-08-07] MEDS: IPRATROPIUM NEB FS 0.5 MG/2.5 ML AMPUL.NEB NEB SCH ×5 (04:16→20:03)
[2016-08-07] MEDS: ALBUTEROL FS 2.5 MG/3 ML VIAL.NEB NEB SCH ×5 (04:16→20:03)
[2016-08-07] MEDS ORDERED: IV NS 0.9% 250 ML IV ONE ×2 (05:15→09:22)
[2016-08-07] MEDS: COLISTIMETHATE SODIUM 75 MG in IV NS 0.9% 50 ML IV SCH ×2 (05:15→17:27)
[2016-08-07] MEDS: INSULIN REGULAR, HUMAN 100 UNIT/ML 3 ML VIAL SQ PRN ×3 (05:35→17:30)
[2016-08-07 07:01] LABS: BASOPHILS % (AUTO) 0.2 % (0.0-2.0); EOSINOPHILS # (AUTO) 0.4 /CMM (0.0-0.7); EOSINOPHILS % (AUTO) 2.8 % (0.0-6.0); LYMPHOCYTES # (AUTO) 1.7 /CMM (0.8-4.8); LYMPHOCYTES % (AUTO) 12.9 % (20.0-44.0); MEAN CORPUSCULAR HEMOGLOBIN 30 PG (26.0-33.0); MEAN CORPUSCULAR HGB CONC 35 g/dl (31.0-36.0); MEAN CORPUSCULAR VOLUME 86 fL (82-100); MONOCYTES # (AUTO) 0.5 /CMM (0.1-1.30); MONOCYTES % (AUTO) 3.4 % (2.0-12.0); NEUTROPHILS # (AUTO) 10.6 /CMM (1.8-8.9); NEUTROPHILS % (AUTO) 80.7 % (43.0-81.0); RDW COEFFICIENT OF VARIATION 17.3 (11.5-15.0); RED BLOOD CELL COUNT(AUTO) 2.21 MIL/uL (4.0-5.2); WHITE BLOOD COUNT (AUTO) 13.2 K/uL (4.3-11.0)
--- NOTE | 2016-08-07 07:15 | NUR ---
TIRE BUSTER NOTES RECEIVED PATIENT OBTUNDED , OPENS EYES , TRACKING , NOT IN ACUTE DISTRESS , RESPIRATIONS EVEN AND UNLABORED WITH SPO2 OF 100% VIA MECHANICAL VENTILATOR SETTINGS ORDERED , TRACH OF PORTEX # [address] , SR 85 ON TELE MONITOR , FC DRAINING WELL VIA GRAVITY WITH CLEAR YELLOW URINE , ON [place] BED , GT PATENT AND INTACT WITH GTF OF NOVASOURCE @ 30ML/HR INFUSING WELL , ROSALVA PICC LINE PATENT AND INTACT WITH NS @ TKO , D5W WITH NA BICARBONATE @ 75ML/HR AND LEVOPHED @ 1MXG/MIN INFUSING WELL , NO ACTIVE BLEEDING AT THIS TIME , ALL NEEDS ATTENDED , BED ON LOW AND LOCKED POSITION , SIDE RAILS X2 , HOB @ 45 , WILL CONTINUE TO MONITOR
[2016-08-07 07:24] LABS: CALCIUM, SERUM 11.2 mg/dL (8.5-10.1); CREATININE 1.7 mg/dL (0.6-1.3); MAGNESIUM 1.5 mg/dL (1.8-2.4); POTASSIUM 3.3 mmol/L (3.5-5.1)
[2016-08-07 07:39] LABS: HEMATOCRIT 19 % (33-45); HEMOGLOBIN 6.6 g/dL (11.5-14.8); PLATELET COUNT (AUTO) 33 /CMM (150-450)
--- NOTE | 2016-08-07 07:48 | NUR ---
OVEN BUILDER NOTES CALLED DR WYATT YOO NOTIFIED H/H 6.6 AND 19 PLATELETS 33 , DISSUSED ABNORMAL LABS , NO ACTIVE BLEEDING AT THIS TIME , CVP 15 , BP OF 111 / 70 , PER MD TRANSFUSE 1 UNIT PRBC , ORDER CARRIED OUT
[2016-08-07 08:06] LABS: BAND % (MANUAL) 1 % (0.0-5.0); EOSINOPHILS % (MANUAL) 6 % (0-4); LYMPHOCYTES % (MANUAL) 11 % (16-48); MONOCYTES % (MANUAL) 3 % (0-11.0); NEUTROPHILS % (MANUAL) 79 (42-76)
[2016-08-07] MEDS: ASCORBIC ACID SYRUP 500 MG/5 ML UDC GT SCH (08:06)
[2016-08-07] MEDS: LANOLIN/MIN OIL/PETROLAT,WHT 3.5 GM TUBE EACHEYE SCH (08:06)
[2016-08-07] MEDS: FERROUS SULFATE UDC 300 MG/5 ML UDC GT SCH ×3 (08:06→17:27)
[2016-08-07] MEDS: ACIDOPHILUS/BULGARICUS 1 EACH TAB.CHEW GT SCH (08:06)
[2016-08-07] MEDS: MULTIVITAMINS,THERAPEUTIC 1 UDTAB TABLET GT SCH (08:06)
[2016-08-07] MEDS: METOPROLOL TARTRATE 25 MG TABLET GT SCH ×2 (08:07→16:11)
[2016-08-07] MEDS: FOLIC ACID 1 MG TABLET GT SCH (08:07)
[2016-08-07] MEDS: LABETALOL HCL (100MG) 100 MG TABLET GT SCH (08:07)
[2016-08-07] MEDS: FAMOTIDINE/PF INJ 20 MG/2 ML VIAL IV SCH ×2 (08:07→20:03)
[2016-08-07] MEDS: ZINC SULFATE 220 MG CAPSULE GT SCH (08:07)
[2016-08-07] MEDS: DOXYCYCLINE 100 MG in IV D5W 100 ML IV SCH ×2 (08:07→21:12)
[2016-08-07] MEDS: NEOMY SULF/BACITRAC ZN/POLY 15 GM TUBE TP SCH (08:08)
[2016-08-07] MEDS: HYDROGEL DRESSING 90 GM TUBE TP SCH (08:08)
[2016-08-07] MEDS: CADEXOMER IODINE 40 GM TUBE TP SCH (08:11)
[2016-08-07] MEDS: PROSOURCE / PROSTAT (PYXIS) 30 ML UDC GT SCH (08:18)
--- NOTE | 2016-08-07 09:00 | NUR ---
MANAGER E LEARNING NOTES LOPRESSOR AND TRANDATE HELD , PT ON LEVOPHED 0.5MCG/MIN , DR MURRAY AWARE
[2016-08-07] MEDS ORDERED: BLOOD IV SET 1 EA INFUS.SET MC ONE (09:23)
[2016-08-07 09:35] LABS: ABG BASE EXCESS -9.6 mmol/L; ABG PCO2 33.5 mmHg (35.0-45.0); ABG PH 7.295 (7.350-7.450); ABG PO2 87.6 mmHg (75.0-100.0); AaDO2 159.1 mmHg; COHb 1.4 % (0.5-1.5); O2Hb 92.7 % (94.0-97.0); SITE, ABG Right Radial; VENT MODE, BG AC 24 450 40%
--- NOTE | 2016-08-07 09:47 | NUR ---
BLASTING ENTRY SPECIALIST NOTES 1 UNIT BLOOD TRANSFUSION STARTED , PT STABLE AT THIS TIME , AFEBRILE , VERIFIED BLOOD WITH ANOTHER RN LUIS MANUEL , WILL MONITOR FOR TRANSFUSION REACTION ,
--- NOTE | 2016-08-07 09:57 | NUR ---
CARPENTER SUPERVISOR NOTES PT STABLE 15 MINUTES OF BLOOD TRANSFUSION , NO TRANSFUSION REACTION NOTES, V/S STABLE AFEBRILE , WILL CONTINUE TO MONITOR
--- NOTE | 2016-08-07 10:00 | NUR ---
CIRCUS SUPERVISOR NOTES DR MURRAY AT BEDSIDE , DISCUSSED LABS , ABG , NO CHEST XRAY TODAY , STABLE AT THIS TIME , ON LEVOPHED @ 1MCG/MIN WITH BP OF 101/66 , D5W WITH NA BICARBONATE 2AMPS , , F/U IF HE WANTS TO ADD MIDODRINE PT IS ON LOW DOSE LEVOPHED , PER MD MONITOR BP FOR ONE DAY , CVP OF 13 , 1 UNITS PRBC INFUSING AT THIS TIME , AFEBRILE , TOLERATES GT FEEDING , NO ACTIVE BLEEDING MD AWARE
[2016-08-07] MEDS ORDERED: Magnesium 1GM/D5W 100ML PREMIX 100 ML IV SCH (11:00)
[2016-08-07] MEDS ORDERED: POTASSIUM CHLORIDE 20 MEQ POWDER PACKET GT ONE (12:00)
[2016-08-07] MEDS ORDERED: IV SET PRIMARY PUMP SET 1 EA INFUS.SET MC ONE (12:24)
[2016-08-07] MEDS: Sodium Bicarbonate 100 MEQ in IV D5W 1,000 ML IV PRN (12:33)
[2016-08-07] MEDS ORDERED: IV NS 0.9% 500 ML IV ONE (13:43)
[2016-08-07] MEDS: NOREPINEPHRINE 16 MG in IV D5W 500 ML IV PRN (14:00)
--- NOTE | 2016-08-07 17:02 | NUR ---
COINING PRESS OPERATOR NOTES NERA AT BEDSIDE , DISCUSSED LABS , ON LEVOPHED @ 1MCG/MIN , AFEBRILE , NO DIARRHEA , CONTINUOUS WELD PIPE MILL SUPERVISOR AWARE
[2016-08-07] MEDS: LEVOFLOXACIN (250MG) 250 MG TABLET PO SCH (17:27)
--- NOTE | 2016-08-07 20:00 | NUR ---
PILLOWCASE CLEANER PT RECEIVED IN BED. PT OBTUNDED AND TRACH CONNECTED TO VENT ON AC SETTINGS PER MD ORDER. SUCTIONED THICK SECRETIONS NEEDED. HOB ELEVATED 30 DEGREES . GT INTACT AND PATENT . 10 ML RESIDUAL NOTED. SR ON MONITOR. FC INTACT AND PATENT.ROSALVA PICC INTACT AND PATENT. IVF RUNNING PER MD ORDER. MULTIPLE WOUNDS NOTED . NO BLEEDING NOTED AT THIS TIME. DRESSINGS INTACT AND PATENT. PT HAD LARGE LOOSE BM . KAMILA CARE DONE AND LINENS CHANGED. LEVOPHED TURNED OFF , BP AND MAP WNL. WILL CONT TO MONITOR.
[2016-08-07] MEDS: METRONIDAZOLE 500 MG TABLET PO SCH (20:03)
[2016-08-07 21:38] LABS: BASOPHILS % (AUTO) 0.1 % (0.0-2.0); EOSINOPHILS # (AUTO) 0.4 /CMM (0.0-0.7); EOSINOPHILS % (AUTO) 3.5 % (0.0-6.0); HEMATOCRIT 23 % (33-45); HEMOGLOBIN 7.8 g/dL (11.5-14.8); LYMPHOCYTES # (AUTO) 1.5 /CMM (0.8-4.8); LYMPHOCYTES % (AUTO) 12.3 % (20.0-44.0); MEAN CORPUSCULAR HEMOGLOBIN 29 PG (26.0-33.0); MEAN CORPUSCULAR HGB CONC 35 g/dl (31.0-36.0); MEAN CORPUSCULAR VOLUME 85 fL (82-100); MONOCYTES # (AUTO) 0.5 /CMM (0.1-1.30); MONOCYTES % (AUTO) 4.2 % (2.0-12.0); NEUTROPHILS # (AUTO) 9.7 /CMM (1.8-8.9); NEUTROPHILS % (AUTO) 79.9 % (43.0-81.0); RDW COEFFICIENT OF VARIATION 16.8 (11.5-15.0); RED BLOOD CELL COUNT(AUTO) 2.66 MIL/uL (4.0-5.2); WHITE BLOOD COUNT (AUTO) 12.1 K/uL (4.3-11.0)
[2016-08-07 21:56] LABS: PLATELET COUNT (AUTO) 23 /CMM (150-450)
[2016-08-07 22:01] LABS: BAND % (MANUAL) 4 % (0.0-5.0); EOSINOPHILS % (MANUAL) 3 % (0-4); LYMPHOCYTES % (MANUAL) 13 % (16-48); MONOCYTES % (MANUAL) 2 % (0-11.0); NEUTROPHILS % (MANUAL) 78 (42-76)
--- NOTE | 2016-08-07 22:30 | NUR ---
[employer] NO H/H DONE AFTER TRANSFUSION THIS AM . NO BLEEDING NOTED BUT DR YOO WANTS SERIAL H/H DONE. STAT CBC DONE. HGB 7.8 AND HCT 23, PLT 23. CALLED DR YOO , DR VYAS AND NO NEW ORDERS GIVEN. DR YOO WANTS H/H DONE Q24HRS ONLY. STOOL SAMPLE SENT TO LAB FOR C-DIFF.
[2016-08-08] VITALS (84 sets, daily range): BP systolic 75–187; BP diastolic 47–108
[2016-08-08] MEDS: IPRATROPIUM NEB FS 0.5 MG/2.5 ML AMPUL.NEB NEB SCH ×7 (00:12→23:39)
[2016-08-08] MEDS: ALBUTEROL FS 2.5 MG/3 ML VIAL.NEB NEB SCH ×7 (00:12→23:40)
[2016-08-08] MEDS: INSULIN REGULAR, HUMAN 100 UNIT/ML 3 ML VIAL SQ PRN ×4 (01:11→18:15)
[2016-08-08] MEDS ORDERED: IV D5W 1,000 ML IV ONE (03:17)
[2016-08-08] MEDS ORDERED: SODIUM BICARBONATE SYR 50 MEQ/50 ML DISP.SYRIN ONE (03:20)
[2016-08-08] MEDS: Sodium Bicarbonate 100 MEQ in IV D5W 1,000 ML IV PRN ×2 (03:54→17:42)
[2016-08-08] MEDS: METRONIDAZOLE 500 MG TABLET PO SCH ×3 (04:21→20:00)
[2016-08-08] MEDS: AMPICILLIN SODIUM 1 GM in IV NS 0.9% 100 ML IV SCH ×3 (04:21→20:00)
[2016-08-08] MEDS ORDERED: IV NS 0.9% 500 ML IV ONE (04:32)
[2016-08-08] MEDS: BLOOD SUGAR DIAGNOSTIC 1 EACH STRIP IN SCH ×5 (05:09→23:59)
[2016-08-08] MEDS: COLISTIMETHATE SODIUM 75 MG in IV NS 0.9% 50 ML IV SCH ×2 (05:09→17:42)
[2016-08-08 06:48] LABS: BASOPHILS % (AUTO) 0.2 % (0.0-2.0); EOSINOPHILS # (AUTO) 0.4 /CMM (0.0-0.7); EOSINOPHILS % (AUTO) 3.5 % (0.0-6.0); HEMATOCRIT 22 % (33-45); HEMOGLOBIN 7.6 g/dL (11.5-14.8); LYMPHOCYTES # (AUTO) 1.5 /CMM (0.8-4.8); LYMPHOCYTES % (AUTO) 14.1 % (20.0-44.0); MEAN CORPUSCULAR HEMOGLOBIN 30 PG (26.0-33.0); MEAN CORPUSCULAR HGB CONC 35 g/dl (31.0-36.0); MEAN CORPUSCULAR VOLUME 85 fL (82-100); MONOCYTES # (AUTO) 0.4 /CMM (0.1-1.30); MONOCYTES % (AUTO) 3.4 % (2.0-12.0); NEUTROPHILS # (AUTO) 8.4 /CMM (1.8-8.9); NEUTROPHILS % (AUTO) 78.8 % (43.0-81.0); RDW COEFFICIENT OF VARIATION 17.5 (11.5-15.0); RED BLOOD CELL COUNT(AUTO) 2.55 MIL/uL (4.0-5.2); WHITE BLOOD COUNT (AUTO) 10.6 K/uL (4.3-11.0)
[2016-08-08 07:04] LABS: PLATELET COUNT (AUTO) 21 /CMM (150-450)
[2016-08-08 07:14] LABS: CALCIUM, SERUM 11.5 mg/dL (8.5-10.1); CREATININE 1.7 mg/dL (0.6-1.3); MAGNESIUM 1.7 mg/dL (1.8-2.4); POTASSIUM 3.1 mmol/L (3.5-5.1)
[2016-08-08 08:28] LABS: EOSINOPHILS % (MANUAL) 6 % (0-4); LYMPHOCYTES % (MANUAL) 15 % (16-48); MONOCYTES % (MANUAL) 1 % (0-11.0); NEUTROPHILS % (MANUAL) 78 (42-76)
--- NOTE | 2016-08-08 08:52 | NUR ---
BP noted to be in 80th starting 07:50 87/55, initiated on Levo at 5mics. But at 08:29 78/49. Now levo increased to 8 mics. now bp is 167/87 levo at 2 mics.
[2016-08-08] MEDS: PROSOURCE / PROSTAT (PYXIS) 30 ML UDC GT SCH (09:00)
[2016-08-08] MEDS: METOPROLOL TARTRATE 25 MG TABLET GT SCH (09:00)
[2016-08-08] MEDS: DOXYCYCLINE 100 MG in IV D5W 100 ML IV SCH ×2 (09:54→20:00)
[2016-08-08] MEDS ORDERED: POTASSIUM CHLORIDE 20 MEQ POWDER PACKET GT ONE (11:30)
[2016-08-08] MEDS ORDERED: POTASSIUM CHLORIDE 20 MEQ POWDER PACKET PO ONE (11:30)
[2016-08-08] MEDS ORDERED: Magnesium 1GM/D5W 100ML PREMIX 100 ML IV ONE (11:30)
[2016-08-08] MEDS: MULTIVITAMINS,THERAPEUTIC 1 UDTAB TABLET GT SCH (13:06)
[2016-08-08] MEDS: ASCORBIC ACID SYRUP 500 MG/5 ML UDC GT SCH (13:06)
[2016-08-08] MEDS: ZINC SULFATE 220 MG CAPSULE GT SCH (13:06)
[2016-08-08] MEDS: FAMOTIDINE/PF INJ 20 MG/2 ML VIAL IV SCH ×2 (13:06→20:00)
[2016-08-08] MEDS: FERROUS SULFATE UDC 300 MG/5 ML UDC GT SCH ×3 (13:06→17:42)
[2016-08-08] MEDS: ACIDOPHILUS/BULGARICUS 1 EACH TAB.CHEW GT SCH (13:06)
[2016-08-08] MEDS: HYDROGEL DRESSING 90 GM TUBE TP SCH (13:08)
[2016-08-08] MEDS: NEOMY SULF/BACITRAC ZN/POLY 15 GM TUBE TP SCH (13:09)
[2016-08-08] MEDS: CADEXOMER IODINE 40 GM TUBE TP SCH (13:09)
[2016-08-08] MEDS: Z GUARD REMEDY 2 OZ OINT TP PRN (13:09)
[2016-08-08] MEDS: LANOLIN/MIN OIL/PETROLAT,WHT 3.5 GM TUBE EACHEYE SCH (13:10)
[2016-08-08] MEDS: FOLIC ACID 1 MG TABLET GT SCH (13:26)
[2016-08-08] MEDS: LEVOFLOXACIN (250MG) 250 MG TABLET PO SCH (17:43)
[2016-08-08] MEDS: RENAL NOVASOURCE 1,000 ML BOTTLE GT PRN (17:55)
[2016-08-08] MEDS: NOREPINEPHRINE 16 MG in IV D5W 500 ML IV PRN (18:05)
--- NOTE | 2016-08-08 20:05 | NUR ---
PT RCVD ON VENT WITH NOTED SETTINGS. SXN LARGE AMOUNT OF YELLOWISH BROWN THICK SECRETIONS. BILATERAL BS NOTED. VENT ALARM CHECKED AND AUDIBLE. VENT PLUGGED INTO RED OUTLET,AMBU BAG AT [facility]. NO RESPIRATORY DISTRESS NOTED, WILL CONTINUE TO MONITOR.
--- NOTE | 2016-08-08 20:48 | NUR ---
RN:ICU: PT BP REMAINS LABILE ON 1 - 0.5MCG/MIN OF LEVOPHED. LEFT UPPER ARM PICC LINE INTACT. SPOKE TO PT DAUGHTER WHO IS DPOA AND SHE STATES THAT SHE WOULD LIKE PATIENT TO BE DNR CODE STATUS. VERIFIED WITH DAUGHTER REGARDING THE MEANING OF DO NOT RESUSCITATE AND PT DAUGHTER IS AWARE. PENDING CALL BACK FROM MD REGARDING CODE STATUS. WILL CONTINUE TO MONITOR CLOSELY.
[2016-08-09] VITALS (47 sets, daily range): BP systolic 73–174; BP diastolic 42–96
[2016-08-09] MEDS: IPRATROPIUM NEB FS 0.5 MG/2.5 ML AMPUL.NEB NEB SCH ×6 (03:20→23:57)
[2016-08-09] MEDS: ALBUTEROL FS 2.5 MG/3 ML VIAL.NEB NEB SCH ×6 (03:20→23:57)
[2016-08-09] MEDS: METRONIDAZOLE 500 MG TABLET PO SCH ×3 (04:06→20:32)
[2016-08-09] MEDS ORDERED: IV NS 0.9% 500 ML IV ONE (04:06)
[2016-08-09] MEDS: AMPICILLIN SODIUM 1 GM in IV NS 0.9% 100 ML IV SCH ×3 (04:06→20:31)
[2016-08-09] MEDS ORDERED: IV NS 0.9% 250 ML IV ONE ×2 (04:06→20:02)
--- NOTE | 2016-08-09 04:33 | NUR ---
RN;ICU: PT BP REMAINS LABILE OFF LEVOPHED. PREVIOUSLY WAS USING CVP PORT FOR LEVOPHED GTT. LEVOPHED D/C AND ATTEMPTED TO CHECK CVP BUT CVP WOULD NOT ZERO. ATTEMPTED MULTIPLE TIMES. WILL ENDORSE TO ONCOMING SHIFT.
[2016-08-09] MEDS: COLISTIMETHATE SODIUM 75 MG in IV NS 0.9% 50 ML IV SCH ×2 (05:15→17:09)
[2016-08-09] MEDS: INSULIN REGULAR, HUMAN 100 UNIT/ML 3 ML VIAL SQ PRN ×4 (05:20→23:39)
[2016-08-09] MEDS: BLOOD SUGAR DIAGNOSTIC 1 EACH STRIP IN SCH ×4 (05:20→23:35)
[2016-08-09 06:37] LABS: BASOPHILS % (AUTO) 0.1 % (0.0-2.0); EOSINOPHILS # (AUTO) 0.3 /CMM (0.0-0.7); EOSINOPHILS % (AUTO) 3.3 % (0.0-6.0); HEMATOCRIT 21 % (33-45); HEMOGLOBIN 7.4 g/dL (11.5-14.8); LYMPHOCYTES # (AUTO) 1.6 /CMM (0.8-4.8); LYMPHOCYTES % (AUTO) 16.2 % (20.0-44.0); MEAN CORPUSCULAR HEMOGLOBIN 30 PG (26.0-33.0); MEAN CORPUSCULAR HGB CONC 35 g/dl (31.0-36.0); MEAN CORPUSCULAR VOLUME 85 fL (82-100); MONOCYTES # (AUTO) 0.3 /CMM (0.1-1.30); MONOCYTES % (AUTO) 2.9 % (2.0-12.0); NEUTROPHILS # (AUTO) 7.9 /CMM (1.8-8.9); NEUTROPHILS % (AUTO) 77.5 % (43.0-81.0); RED BLOOD CELL COUNT(AUTO) 2.46 MIL/uL (4.0-5.2); WHITE BLOOD COUNT (AUTO) 10.2 K/uL (4.3-11.0)
[2016-08-09 06:51] LABS: PLATELET COUNT (AUTO) 15 /CMM (150-450)
[2016-08-09 07:13] LABS: CALCIUM, SERUM 11.5 mg/dL (8.5-10.1); CREATININE 1.7 mg/dL (0.6-1.3); POTASSIUM 3.1 mmol/L (3.5-5.1)
--- NOTE | 2016-08-09 07:30 | NUR ---
ICU/RN: PT REMAINS HEMODYNAMICALLY STABLE, TOLERATING CURRENT VENT SETTINGS, BREATHING EVEN AND UNLABORED, NO ACTIVE BLEEDING NOTED. ROSALVA PICC PATENT AND INTACT, DRESSING C/D/I. FC DRAINING CLOUDY DOMINIQUE URINE TO GRAVITY. DRESSING C/D/I/ WILL CONT TO MONITOR PT
--- NOTE | 2016-08-09 08:28 | NUR ---
ICU/RN: DR YOO ROUNDS; UPDATED ON H/H AND PLATELET DROP - NO ACTIVE BLEEDING NOTED. PER MD "NO NEED TO TRANSFUSE BLOOD PRODUCTS UNLESS PT IS ACTIVELY BLEEDING." STANDING ORDER AND PARAMETERS OBTAINED AND NOTED.
[2016-08-09 08:31] LABS: EOSINOPHILS % (MANUAL) 8 % (0-4); LYMPHOCYTES % (MANUAL) 10 % (16-48); MONOCYTES % (MANUAL) 3 % (0-11.0); NEUTROPHILS % (MANUAL) 79 (42-76)
[2016-08-09] MEDS: MULTIVITAMINS,THERAPEUTIC 1 UDTAB TABLET GT SCH (08:49)
[2016-08-09] MEDS: ACIDOPHILUS/BULGARICUS 1 EACH TAB.CHEW GT SCH (08:49)
[2016-08-09] MEDS: FERROUS SULFATE UDC 300 MG/5 ML UDC GT SCH ×3 (08:49→16:35)
[2016-08-09] MEDS: ZINC SULFATE 220 MG CAPSULE GT SCH (08:49)
[2016-08-09] MEDS: FOLIC ACID 1 MG TABLET GT SCH (08:49)
[2016-08-09] MEDS: ASCORBIC ACID SYRUP 500 MG/5 ML UDC GT SCH (08:49)
[2016-08-09] MEDS: FAMOTIDINE/PF INJ 20 MG/2 ML VIAL IV SCH ×2 (08:49→20:31)
[2016-08-09] MEDS: Z GUARD REMEDY 2 OZ OINT TP PRN (08:50)
[2016-08-09] MEDS: NEOMY SULF/BACITRAC ZN/POLY 15 GM TUBE TP SCH (08:50)
[2016-08-09] MEDS: HYDROGEL DRESSING 90 GM TUBE TP SCH (08:50)
[2016-08-09] MEDS: PROSOURCE / PROSTAT (PYXIS) 30 ML UDC GT SCH (09:00)
[2016-08-09] MEDS: CADEXOMER IODINE 40 GM TUBE TP SCH (09:08)
--- NOTE | 2016-08-09 09:08 | NUR ---
ICU/RN: DR SHRUTHI MÉNDEZ; UPDATED ON PT STATUS, PT ON HCO3 DRIP SINCE 08/04/16, F/U ABG REQUESTED. WILL NOTIFY MD OF ABG RESULTS.
[2016-08-09] MEDS: LANOLIN/MIN OIL/PETROLAT,WHT 3.5 GM TUBE EACHEYE SCH (09:09)
[2016-08-09] MEDS: POLYVINYL ALCOHOL 15 ML BOTTLE EACHEYE PRN (09:09)
[2016-08-09] MEDS: DOXYCYCLINE 100 MG in IV D5W 100 ML IV SCH ×2 (09:31→20:31)
[2016-08-09] MEDS ORDERED: SECONDARY IV SET 1 EA INFUS.SET MC ONE ×3 (09:38→20:02)
[2016-08-09 10:06] LABS: ABG BASE EXCESS -2.9 mmol/L; ABG OXYGEN SATURATION 97.9 % (92.0-98.5); ABG PH 7.475 (7.350-7.450); ABG PO2 162.7 mmHg (75.0-100.0); AaDO2 90.3 mmHg; O2Hb 95.9 % (94.0-97.0); PEEP,BG 0 cm H2O; SITE, ABG Right Radial; VT, ABG 450 mL
--- NOTE | 2016-08-09 10:30 | NUR ---
ICU/RN: SUNDAY OCAMPO, SHIRT SORTER ROUNDS; UPDATED ON PT STATUS. DW POC, BLOOD TX, ABG RESULTS, CODE STATUS WITH SHIRT SORTER. ORDERS NOTED AND CARRIED OUT.
[2016-08-09] MEDS: POTASSIUM CL. PREMIX PERIPHER. 50 ML IV SCH ×2 (11:02→12:03)
--- NOTE | 2016-08-09 14:00 | NUR ---
ICU/RN: COMPLETE BED BATH AND ORAL CARE RENDERED. BILAT LOWER EXT WOUNDS AND SACRAL WOUND WITH SCANT SEROSANGUINEOUS DRAINAGE. WOUND CARE RENDERED ORDERED. PT TOLERATED WELL.
[2016-08-09] MEDS: LEVOFLOXACIN (250MG) 250 MG TABLET PO SCH (16:35)
[2016-08-09] MEDS: RENAL NOVASOURCE 1,000 ML BOTTLE GT PRN (16:39)
--- NOTE | 2016-08-09 19:16 | NUR ---
ICU/RN: PT REMAINS IN STABLE CONDITION, NO DISTRESS, ACTIVE BLEEDING NOTED. CARE ENDORSED TO PM RN FOR MANDEEP.
[2016-08-09] MEDS ORDERED: IV SET PRIMARY PUMP SET 1 EA INFUS.SET MC ONE (20:02)
--- NOTE | 2016-08-09 22:16 | NUR ---
ICU OVERFLOW RN NOTES RECEIVED PT IN STABLE STATE. ON VENT VIA TRACH AT ORDERED SETTINGS, ARNOLD WELL. TELE READS SR IN 80s. RUNNING NS AT TKO. RUNNING NOVASOURCE VIA GT AT 30 ML/HR. NO RESIDUAL. PICC AT ROSALVA, DRESSING INTACT. MYRICK CATH IN PLACE. MULTIPLE SKIN WOUNDS. ON KCI, HOB ELEVATED, TURNED AND REPOSITIONED.
[2016-08-10] VITALS (55 sets, daily range): BP systolic 67–141; BP diastolic 32–88
[2016-08-10] MEDS: IPRATROPIUM NEB FS 0.5 MG/2.5 ML AMPUL.NEB NEB SCH ×4 (03:47→14:56)
[2016-08-10] MEDS: ALBUTEROL FS 2.5 MG/3 ML VIAL.NEB NEB SCH ×4 (03:47→14:56)
[2016-08-10] MEDS: BLOOD SUGAR DIAGNOSTIC 1 EACH STRIP IN SCH ×2 (05:52→11:41)
[2016-08-10] MEDS: METRONIDAZOLE 500 MG TABLET PO SCH ×2 (05:52→12:26)
[2016-08-10] MEDS: AMPICILLIN SODIUM 1 GM in IV NS 0.9% 100 ML IV SCH (05:52)
[2016-08-10] MEDS: COLISTIMETHATE SODIUM 75 MG in IV NS 0.9% 50 ML IV SCH (05:52)
[2016-08-10] MEDS: INSULIN REGULAR, HUMAN 100 UNIT/ML 3 ML VIAL SQ PRN ×2 (05:54→11:42)
--- NOTE | 2016-08-10 07:20 | NUR ---
ICU/RN: PT RECEIVED, OPENS EYES TO LIGHT TOUCH. UNABLE TO FOLLOW COMMANDS. TOLERATING CURRENT VENT SETTINGS. DRESSINGS C/D/I. NO ACTIVE BLEEDING NOTED. WILL CONT TO MONITOR PT.
[2016-08-10 07:56] LABS: BASOPHILS % (AUTO) 0.1 % (0.0-2.0); EOSINOPHILS # (AUTO) 0.3 /CMM (0.0-0.7); EOSINOPHILS % (AUTO) 2.9 % (0.0-6.0); LYMPHOCYTES # (AUTO) 1.3 /CMM (0.8-4.8); LYMPHOCYTES % (AUTO) 15.4 % (20.0-44.0); MEAN CORPUSCULAR HEMOGLOBIN 30 PG (26.0-33.0); MEAN CORPUSCULAR HGB CONC 35 g/dl (31.0-36.0); MEAN CORPUSCULAR VOLUME 84 fL (82-100); MONOCYTES # (AUTO) 0.3 /CMM (0.1-1.30); MONOCYTES % (AUTO) 3.5 % (2.0-12.0); NEUTROPHILS # (AUTO) 6.8 /CMM (1.8-8.9); NEUTROPHILS % (AUTO) 78.1 % (43.0-81.0); RDW COEFFICIENT OF VARIATION 16.6 (11.5-15.0); WHITE BLOOD COUNT (AUTO) 8.6 K/uL (4.3-11.0)
[2016-08-10] MEDS: FERROUS SULFATE UDC 300 MG/5 ML UDC GT SCH ×2 (08:04→12:26)
[2016-08-10] MEDS: ASCORBIC ACID SYRUP 500 MG/5 ML UDC GT SCH (08:04)
[2016-08-10] MEDS: ACIDOPHILUS/BULGARICUS 1 EACH TAB.CHEW GT SCH (08:04)
[2016-08-10] MEDS: DOXYCYCLINE 100 MG in IV D5W 100 ML IV SCH (08:04)
[2016-08-10] MEDS: FOLIC ACID 1 MG TABLET GT SCH (08:04)
[2016-08-10] MEDS: ZINC SULFATE 220 MG CAPSULE GT SCH (08:04)
[2016-08-10 08:05] LABS: HEMOGLOBIN 6.8 g/dL (11.5-14.8)
[2016-08-10] MEDS: FAMOTIDINE/PF INJ 20 MG/2 ML VIAL IV SCH (08:05)
[2016-08-10] MEDS: MULTIVITAMINS,THERAPEUTIC 1 UDTAB TABLET GT SCH (08:05)
[2016-08-10 08:06] LABS: CALCIUM, SERUM 11.4 mg/dL (8.5-10.1); CREATININE 1.8 mg/dL (0.6-1.3); HEMATOCRIT 19 % (33-45); PLATELET COUNT (AUTO) 9 /CMM (150-450); POTASSIUM 3.1 mmol/L (3.5-5.1)
[2016-08-10] MEDS: HYDROGEL DRESSING 90 GM TUBE TP SCH (08:13)
[2016-08-10] MEDS: Z GUARD REMEDY 2 OZ OINT TP PRN (08:13)
[2016-08-10] MEDS: PROSOURCE / PROSTAT (PYXIS) 30 ML UDC GT SCH (08:15)
[2016-08-10] MEDS: NEOMY SULF/BACITRAC ZN/POLY 15 GM TUBE TP SCH (08:16)
[2016-08-10] MEDS: CADEXOMER IODINE 40 GM TUBE TP SCH (08:16)
[2016-08-10] MEDS: LANOLIN/MIN OIL/PETROLAT,WHT 3.5 GM TUBE EACHEYE SCH (08:16)
--- NOTE | 2016-08-10 09:00 | NUR ---
ICU/RN: DR HAWKINS ROUNDS - UPDATED ON CRITICAL LABS; MD IN AGREEMENT WITH HEMATOLOGY CONSULT; NO BLOOD TRANSFUSION INDICATED IF PT IS NOT ACTIVELY BLEEDING.
[2016-08-10 09:27] LABS: EOSINOPHILS % (MANUAL) 1 % (0-4); LYMPHOCYTES % (MANUAL) 12 % (16-48); MONOCYTES % (MANUAL) 1 % (0-11.0); NEUTROPHILS % (MANUAL) 86 (42-76)
[2016-08-10] MEDS ORDERED: IV SET PRIMARY PUMP SET 1 EA INFUS.SET MC ONE (09:51)
[2016-08-10] MEDS: NOREPINEPHRINE 16 MG in IV D5W 500 ML IV PRN (10:13)
[2016-08-10] MEDS ORDERED: SECONDARY IV SET 1 EA INFUS.SET MC ONE (10:35)
[2016-08-10] MEDS: POTASSIUM CL. PREMIX PERIPHER. 50 ML IV SCH ×3 (10:40→12:38)
--- NOTE | 2016-08-10 11:00 | NUR ---
ICU/RN: SUNDAY OCAMPO ROUNDS; UPDATED ON PT STATUS. ABN LABS AND POC DW PSYCHIATRIC TECHNICIAN. PSYCHIATRIC TECHNICIAN SPOKE WITH DORITA, DAUGHTER AND DISCUSSED POSSIBILITY FOR HOSPICE. PT CONTINUES TO BE DNR. DAUGHTER WILL CALL BACK ONCE FAMILY DECISION IS REACHED. ETYMOLOGY TEACHER AWARE.
[2016-08-10] MEDS ORDERED: PLATELET IV SET 1 EA INFUS.SET MC ONE (12:13)
[2016-08-10] MEDS ORDERED: BLOOD IV SET 1 EA INFUS.SET MC ONE (12:14)
[2016-08-10] MEDS ORDERED: IV NS 0.9% 250 ML IV ONE (12:14)
[2016-08-10] MEDS ORDERED: AMPICILLIN 1 GM in IV NS 0.9% 50 ML IV SCH (13:00)
--- NOTE | 2016-08-10 16:15 | NUR ---
ICU/RN: PT NOTED TO START HAVING DECREASE IN HR FROM 80-50'S, O2 SAT DECREASE TO 70'S. SHADY PATINO AND DR YOO ROUNDKEN AT BEDSIDE. UPDATED ON PT STATUS.
--- NOTE | 2016-08-10 16:40 | NUR ---
ICU/RN: DR YOO ROUNDS; UPDATED ON PT STATUS. 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 SHE IS SEPTIC." INFORMED MD THAT WE ARE WAITING TO HEAR BACK FROM DORITA, DAUGHTER.
--- NOTE | 2016-08-10 17:30 | NUR ---
RN NOTE PT DNR STATUS. FOUND AREFLEXIVE, ASYSTOLIC. PUPILS FIXED AND DILATED. PRONOUNCED .
--- NOTE | 2016-08-10 17:40 | NUR ---
ICU/RN: [facility] , SPOKE WITH ISMAEL. NOTIFIED DAUGHTER DORITA ALSTON OF PT EXPIRATION. PER DAUGHTER, "I WILL CALL BACK ONCE THE NEWS SINKS IN AND I WILL GIVE MORTUARY INFORMATION."
--- NOTE | 2016-08-10 17:45 | NUR ---
ICU/RN: SUNDAY OCAMPO NP NOTIFIED OF PT
--- NOTE | 2016-08-10 17:56 | NUR ---
ICU/RN: RECEIVED PHONE CALL FROM DAUGHTER, MUSA GLASGOW, SHE WILL TRY TO ARRIVE WITHIN 1-2HRS IN ORDER PAY HER LAST RESPECTS. DIVIDEND DEPOSIT ENTRY CLERK NOTIFIED.
--- NOTE | 2016-08-10 19:45 | NUR ---
RN NOTES RECEIVED PX, , ON BODY BAG ALREADY; DAUGHTER JUST CAME WITH ; INSTRUCTED BY NURSING SALES MARKETING MANAGER, INFORMED TO CALL SALES MARKETING MANAGER SOON SHE DECIDES FOR MORTUARY ARRANGEMENT; WITH HELP OF SECURITY, BROUGHT PATIENT DOWN TO [facility].
== END 2016-08-10 17:30 | disposition expired | DRG 720 ==
LOC: ER 17:22 → EDSEX 17:22 → TELE-TD 20:35 → ICUOV 07-30 18:28 → UNDODISIN 08-10 17:43
PROVIDERS: ADMIT Family Medicine; ATTEND Family Medicine
PROC: 5A1955Z Respiratory Ventilation, Greater than 96 Consecutive Hours (ICD-10-PCS; principal; 2016-07-27)
PROC: 30233N1 Transfusion of Nonautologous Red Blood Cells into Peripheral Vein, Percutaneous Approach (ICD-10-PCS; principal; 2016-07-27)
PROC: 05PYX3Z Removal of Infusion Device from Upper Vein, External Approach (ICD-10-PCS; 2016-08-03)
PROC: B548ZZA Ultrasonography of Superior Vena Cava, Guidance (ICD-10-PCS; 2016-08-03)
PROC: 30233R1 Transfusion of Nonautologous Platelets into Peripheral Vein, Percutaneous Approach (ICD-10-PCS; 2016-08-03)
PROC: 02HV33Z Insertion of Infusion Device into Superior Vena Cava, Percutaneous Approach (ICD-10-PCS; 2016-08-03)
DX: A41.9 Sepsis, unspecified organism (principal); N17.0 Acute kidney failure with tubular necrosis; R65.21 Severe sepsis with septic shock; G93.41 Metabolic encephalopathy; E43 Unspecified severe protein-calorie malnutrition; J18.9 Pneumonia, unspecified organism; J90 Pleural effusion, not elsewhere classified; Z99.11 Dependence on respirator [ventilator] status; D61.818 Other pancytopenia; E87.2 Acidosis; L89.623 Pressure ulcer of left heel, stage 3; R53.2 Functional quadriplegia; Z93.0 Tracheostomy status; D64.9 Anemia, unspecified; R13.10 Dysphagia, unspecified; Z93.1 Gastrostomy status; E87.1 Hypo-osmolality and hyponatremia; N39.0 Urinary tract infection, site not specified; D69.59 Other secondary thrombocytopenia; E03.9 Hypothyroidism, unspecified; E83.42 Hypomagnesemia; E83.52 Hypercalcemia; E86.0 Dehydration; E87.6 Hypokalemia; J96.11 Chronic respiratory failure with hypoxia; Z16.24 Resistance to multiple antibiotics; R74.0 Nonspecific elevation of levels of transaminase and lactic acid dehydrogenase [LDH]; D69.6 Thrombocytopenia, unspecified; E88.09 Other disorders of plasma-protein metabolism, not elsewhere classified; S20.219A Contusion of unspecified front wall of thorax, initial encounter; S10.93XA Contusion of unspecified part of neck, initial encounter; X58.XXXA Exposure to other specified factors, initial encounter; Y93.9 Activity, unspecified; Y92.89 Other specified places as the place of occurrence of the external cause; Y99.9 Unspecified external cause status; L89.152 Pressure ulcer of sacral region, stage 2; L89.320 Pressure ulcer of left buttock, unstageable; L89.102 Pressure ulcer of unspecified part of back, stage 2; S40.011A Contusion of right shoulder, initial encounter; L98.8 Other specified disorders of the skin and subcutaneous tissue; S60.521A Blister (nonthermal) of right hand, initial encounter; S50.822A Blister (nonthermal) of left forearm, initial encounter; L53.8 Other specified erythematous conditions; E11.621 Type 2 diabetes mellitus with foot ulcer; L97.519 Non-pressure chronic ulcer of other part of right foot with unspecified severity; L97.529 Non-pressure chronic ulcer of other part of left foot with unspecified severity; I70.245 Atherosclerosis of native arteries of left leg with ulceration of other part of foot; I70.235 Atherosclerosis of native arteries of right leg with ulceration of other part of foot; L89.512 Pressure ulcer of right ankle, stage 2; Z85.79 Personal history of other malignant neoplasms of lymphoid, hematopoietic and related tissues; B95.2 Enterococcus as the cause of diseases classified elsewhere; Z16.21 Resistance to vancomycin; L89.611 Pressure ulcer of right heel, stage 1; S71.001A Unspecified open wound, right hip, initial encounter; Z66 Do not resuscitate; R16.0 Hepatomegaly, not elsewhere classified; T82.7XXA Infection and inflammatory reaction due to other cardiac and vascular devices, implants and grafts, initial encounter; Y84.9 Medical procedure, unspecified as the cause of abnormal reaction of the patient, or of later complication, without mention of misadventure at the time of the procedure; E87.70 Fluid overload, unspecified; I10 Essential (primary) hypertension; L03.90 Cellulitis, unspecified; E87.4 Mixed disorder of acid-base balance; B96.89 Other specified bacterial agents as the cause of diseases classified elsewhere; K76.9 Liver disease, unspecified
CPT/HCPCS: 31720; 36415; 36600; 71010-TC; 76700-TC; 77075-TC; 80048-TC; 80053-TC; 80076-TC; 80202-TC; 81000-TC; 82040-TC; 82232; 82247-TC; 82248-TC; 82272-TC; 82306; 82570-TC; 82728-TC; 82746; 82784; 82803-TC; 82947-TC; 82962-TC; 83010; 83540-TC; 83605-TC; 83615-TC; 83690-TC; 83735-TC; 83935-TC; 84100-TC; 84155; 84156; 84165; 84166; 84295-TC; 84300-TC; 84439-TC; 84443-TC; 84550-TC; 85025-TC; 85027-TC; 85045-TC; 85385-TC; 85396; 85610-TC; 85652-TC; 85730-TC; 86334; 86335; 86850-TC; 86921-TC; 87040-TC; 87070-TC; 87081-TC; 87086-TC; 87186-TC; 94002-TC; 94003-TC; 94760-TC; 94762-TC; 99082-TC; A4216; A4606; A6248; A6253; A6402; A6403; C9113; J0290; J0696; J0770; J1815; J2020; J2405; J3370; J3475; J3480; J3490; J7030; J7040; J7050; J7060; J7070; P9016-BL; P9034-BL; P9047; Z7610